=== PATIENT | male | born 1955 | race Hispanic/Latino ===

== ENCOUNTER 2019-11-02 11:14 | Observation (INO) | payer MEDICAID, OTHER ==
[~2019-11-02 11:14] MED LIST: Iopamidol-370 76% 500 ML 1 ML ONE
[2019-11-02] MEDS ORDERED: Aspirin Chewable 81 MG TAB ONE (11:42)
[2019-11-02] MEDS ORDERED: Nitroglycerin 2% Ointment 1 INCH/1 GM Packet ONE (11:42)
[2019-11-02 12:12] LABS: #Eosinphils 0.1 thou/uL (0.0-0.7); #Lymphocytes 1.1 thou/uL (1.20-3.40); #Monocytes 0.4 thou/uL (0.11-0.59); #Neutrophils 4.3 thou/uL (1.40-6.50); %Basophils 0.6 % (0.0-1.0); %Eosinophils 1.3 % (0.0-10.0); %Lymphocytes 18.5 % (21.0-51.0); %Monocytes 6.2 % (0.0-10.0); %Neutrophils 73.4 % (42.0-75.0); Hemoglobin 13.4 g/dL (14.0-18.0); Mean Corpuscular HGB CONC 31.6 g/dL (32.0-36.0); Mean Corpuscular Volume 82.2 fL (78.0-98.0); Mean Platelet Volume 7.1 fL (7.4-10.4); Platelet Count 366 thou/uL (130-400); Red Blood Cell (RBC) Count 5.17 mill/uL (4.70-6.10); White Blood Cell (WBC) Count 5.9 thou/uL (4.8-10.8)
[2019-11-02 12:46] LABS: ALT (SGPT) 22 U/L (8-55); AST (SGOT) 19 U/L (5-34); Albumin 4.3 g/dL (3.4-4.8); Alkaline Phosphatase 102 U/L (40-110); Anion Gap 12 mmol/L (10-20); BUN (Urea Nitrogen) 11 mg/dL (8.4-25.7); Bilirubin, Total 0.5 mg/dL (0.2-1.2); Calc. Creatinine Clearance 0 mL/min (70-130); Calcium 9.5 mg/dL (7.8-10.44); Carbon Dioxide 23 mmol/L (23-31); Chloride 104 mmol/L (98-107); Estimated GFR-MDRD 88; Globulin 3.2 g/dL (2.4-3.5); Glucose 143 mg/dL (80-115); Lipase 37 U/L (8-78); Potassium 3.9 mmol/L (3.5-5.1); Protein, Total 7.5 g/dL (5.8-8.1); Sodium 135 mmol/L (136-145)
[2019-11-02] MEDS ORDERED: Nitroglycerin 0.4 MG TAB 1 EACH ONE (13:23)
--- NOTE | 2019-11-02 13:54 | RAD ---
EXAM: CHEST ONE VIEW: 11/02/19 HISTORY: Vomiting, chills, fever, cough. COMPARISON: 06/02/13. FINDINGS: Postop midline sternotomy. Probable cardiac vascular stent. Old granulomatous disease. No confluent p neumonia, overt edema or pleural effusion. IMPRESSION: Postop midline sternotomy. No significant acute intrathoracic disease. No evidence for pneumonia. POS: [facility]
[2019-11-02] MEDS ORDERED: Ketorolac Tromethamine 30 MG/ML VIAL ONE (14:14)
--- NOTE | 2019-11-02 15:36 | CT ---
CT OF THE CHEST WITH IV CONTRAST AND 3D POSTPROCESSING: CT OF THE ABDOMEN WITH IV CONTRAST AND 3D POSTPROCESSIN11/02/19 HISTORY: 63-year-old male with chest pain. FINDINGS: There is good opacification of the thoracoabdominal aorta without intimal flap to suggest dissection. No aneurysmal dilatation is seen. 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 There is moderate stenosis at the origins of the reba al arteries bilaterally. There is good contrast opacification of the pulmonary artery vasculature without filling defects to s uggest pulmonary embolism. No pleural or pericardial effusions are seen. No pneumothoraces, focal are as of consolidation or lung masses/nodules are see. No free air, free fluid or lymphadenopathy is seen in the abdomen. No mediastinal, hilar or axillary mass or lymphadenopathy is identified. The patient is post cholecystectomy. The liver, spleen, pancreas, adrenal glands, are normal. There i s a small right inguinal cyst. A tiny nonobstructing left renal calculus is present. There are degenerative changes in the spine. IMPRESSION: 1. No CT evidence of aortic aneurysm/dissection or pulmonary embolism. 2. Nonobstructing tiny left renal calculus. POS: [facility]
[2019-11-02 15:50] LABS: Troponin I 0.015 ng/mL (< 0.028)
[2019-11-02] MEDS ORDERED: Ondansetron ODT 4 MG TAB SL PRN (16:50)
[2019-11-02] MEDS ORDERED: Acetaminophen 325 MG TAB PO PRN (16:50)
[2019-11-02] MEDS ORDERED: Ondansetron PF 4 MG/2 ML Vial IVP PRN (16:50)
--- NOTE | 2019-11-02 17:29 | PDOC.HHP ---
Hospitalist HPI - History of Present Illness chest pain History of Present Illness: This is a 63 year old male with past medical history of CAD s/p CABG, cardiac tamponade, who presented to the ER with chest pain. The patient says yesterday he felt like he had no energy and felt weak. This morning he woke up at 3 am with chest pain, 7/10 that started while he was sleeping. He states it was sharp , radiating to his left shoulder. HE states his pain is worst with any kind of movement. He denies pain while taking a deep breath. He reports shortness of breath and dry cough for the past few days. He also reports feeling hot. He does not have a fever that he knows of. He has headaches, nausea and vomiting, but no abdominal pain. The patient hasn't been drinking water for the past few days because he states "it doesn't taste the same, it tastes weird." He denies loss of smell. He denies sick contacts. He lives with his brother. He recently moved from [place] two months ago. The patient also reports intermittent ear pain for the past few months worst on the left. He states he has been using cutips to clean his ears frequently. He feels there is fluid coming out of his ear. ED Course: The patient presented to the ER with elevated systolic of 210. He was given aspirin 324, nitro, toradol. Chest X ray was normal. CTA showed no PE or no dissection. The patient reported mild improvement in pain with toradol. Per ER his pain improved some with nitroglycerin. EKG showed inverted T waves in lateral leads which are new. Hospitalist ROS - Review of Systems Constitutional: reports: chills Eyes: denies: vision change ENT: reports: ear pain (worst on the left) Respiratory: reports: cough, shortness of breath Cardiovascular: reports: chest pain. denies: palpitations, orthopnea Gastrointestinal: reports: nausea, vomiting. denies: abdominal pain, diarrhea Genitourinary: denies: dysuria, frequency Musculoskeletal: denies: neck pain, shoulder pain Hospitalist History - Past Medical History Other Medical History: CAd s/p CABG Hypertension Hyperlipidemia Peripheral neuropathy - Past Surgical History Other Surgical History: CAD s/p CABG Appendectomy Cholecystectomy Kidney stone removal Carotid stent - Family History Other Family History: parents have heart disease - Social History Smoking Status: Former smoker (Quit 12 years ago) Alcohol: reports: None Drugs: reports: none Living Situation: Other (lives with brother) - Exam General Appearance: NAD, awake alert Eye: PERRL, anicteric sclera ENT: normocephalic atraumatic, no oropharyngeal lesions ENT - other findings: left ear erythema with significant wax buildup. Neck: no JVD Heart: RRR, no murmur, no gallops, no rubs, diminshed peripheral pulses Respiratory: CTAB, no wheezes, no rales, no ronchi Gastrointestinal: soft, non-tender, non-distended, normal bowel sounds Extremities: no cyanosis, no clubbing, no edema Skin: normal turgor, no lesions, no rashes Neurological: cranial nerve grossly intact, normal sensation to touch, no focal deficits, no new deficit Hospitalist Results - Labs Result Diagrams: 11/02/19 11:40 11/02/19 11:40 Lab results: WBC 5.9 thou/uL (4.8-10.8) 11/02/19 11:40 Hgb 13.4 g/dL (14.0-18.0) L 11/02/19 11:40 Hct 42.5 % (42.0-52.0) 11/02/19 11:40 MCV 82.2 fL (78.0-98.0) 11/02/19 11:40 Plt Count 366 thou/uL (130-400) 11/02/19 11:40 Neutrophils % 73.4 % (42.0-75.0) 11/02/19 11:40 Sodium 135 mmol/L (136-145) L 11/02/19 11:40 Potassium 3.9 mmol/L (3.5-5.1) 11/02/19 11:40 Chloride 104 mmol/L (98-107) 11/02/19 11:40 Carbon Dioxide 23 mmol/L (23-31) 11/02/19 11:40 BUN 11 mg/dL (8.4-25.7) 11/02/19 11:40 Creatinine 0.87 mg/dL (0.7-1.3) 11/02/19 11:40 Glucose 143 mg/dL (80-115) H 11/02/19 11:40 Calcium 9.5 mg/dL (7.8-10.44) 11/02/19 11:40 Total Bilirubin 0.5 mg/dL (0.2-1.2) 11/02/19 11:40 AST 19 U/L (5-34) 11/02/19 11:40 ALT 22 U/L (8-55) 11/02/19 11:40 Alkaline Phosphatase 102 U/L (40-110) 11/02/19 11:40 Troponin I 0.015 ng/mL (< 0.028) 11/02/19 15:08 B-Natriuretic Peptide 12.7 pg/mL (0-100) 11/02/19 11:40 Serum Total Protein 7.5 g/dL (5.8-8.1) 11/02/19 11:40 Albumin 4.3 g/dL (3.4-4.8) 11/02/19 11:40 Lipase 37 U/L (8-78) 11/02/19 11:40 - EKG Interpretation EKG: T wave inversions in lateral lead Hospitalist H&P A/P - Plan Plan: CTA: no dissection or PE Chest X ray: no pneumonia This is a 63 year old male with past medical history of hypertension, CAD s/p CABG who presented to the ER with chest pain, chills, Chest pain - likely secondary to viral etiology - given concomitant weakness/nausea/vomiting, abnormalities in taste, SOB/cough , suspect infectious vs allergic cause - COVID testing performed. Will order respiratory viral panel. Consider starting dexamethasone if COVID + - EKG shows new T wave inversion, continue to trend troponins and monitor on telemetry - chest X ray normal. CTA shows no PE or dissection CAd s/p CABG - continue aspirin, coreg, lisinopril, brilinta Mild otitis externa left ear - will order cipro ear drops - debrox to dissolve wax GERD - continue protonix Hypertension - hold meds for now Code status:full code
[2019-11-02 17:38] VITALS: BMI 25.0
[2019-11-02] MEDS ORDERED: Zolpidem Tartrate 5 MG TAB PO PRN (17:42)
[2019-11-02] MEDS ORDERED: Ondansetron ODT 4 MG TAB PO PRN (17:42)
[2019-11-02] MEDS ORDERED: Methocarbamol 500 MG TAB PO PRN (17:42)
[2019-11-02] MEDS ORDERED: Loratadine 10 MG TAB PO SCH (17:45)
[2019-11-02] MEDS: HYDROcodone/Acetaminophen 5/325 mg Tablet PO PRN (18:18)
[2019-11-02 18:53] LABS: Troponin I Less than 0.010 ng/mL (< 0.028)
[2019-11-02] MEDS: Carbamide Peroxide 6.5% Otic Drops 15 ml Bottle L EAR SCH (21:55)
[2019-11-02] MEDS: Gabapentin 300 MG CAP PO SCH (21:57)
[2019-11-02] MEDS: TICAGRELOR 90 MG TABLET PO SCH (21:57)
[2019-11-02] MEDS: Ciprofloxacin 0.2% Otic 1 DROP CON EA EAR SCH (21:59)
[2019-11-03] MEDS: HYDROcodone/Acetaminophen 5/325 mg Tablet PO PRN ×3 (00:18→15:55)
[2019-11-03] MEDS: Carbamide Peroxide 6.5% Otic Drops 15 ml Bottle L EAR SCH ×2 (08:10→21:00)
[2019-11-03] MEDS: Aspirin 81 mg Enteric Coated Tablet PO SCH (08:11)
[2019-11-03] MEDS: Atorvastatin Calcium 40 MG TAB PO SCH (08:11)
[2019-11-03] MEDS: Loratadine 10 MG TAB PO SCH (08:11)
[2019-11-03] MEDS: Ciprofloxacin 0.2% Otic 1 DROP CON EA EAR SCH ×2 (08:11→21:46)
[2019-11-03] MEDS: Gabapentin 300 MG CAP PO SCH ×3 (08:11→21:00)
[2019-11-03] MEDS: Carvedilol 25 MG TAB PO SCH ×2 (08:12→17:25)
[2019-11-03] MEDS: TICAGRELOR 90 MG TABLET PO SCH ×2 (08:12→21:00)
[2019-11-03 09:04] LABS: #Basophils 0.1 thou/uL (0.0-0.2); #Eosinphils 0.1 thou/uL (0.0-0.7); #Lymphocytes 1.3 thou/uL (1.20-3.40); #Monocytes 0.5 thou/uL (0.11-0.59); #Neutrophils 4.9 thou/uL (1.40-6.50); %Basophils 0.8 % (0.0-1.0); %Eosinophils 1.7 % (0.0-10.0); %Lymphocytes 18.9 % (21.0-51.0); %Monocytes 6.8 % (0.0-10.0); %Neutrophils 71.8 % (42.0-75.0); Hemoglobin 12.4 g/dL (14.0-18.0); Mean Corpuscular HGB CONC 31.8 g/dL (32.0-36.0); Mean Corpuscular Hemoglobin 26.1 pg (27.0-31.0); Mean Platelet Volume 7.5 fL (7.4-10.4); Platelet Count 340 thou/uL (130-400); Red Blood Cell (RBC) Count 4.75 mill/uL (4.70-6.10); White Blood Cell (WBC) Count 6.8 thou/uL (4.8-10.8)
[2019-11-03 09:20] LABS: Anion Gap 12 mmol/L (10-20); BUN (Urea Nitrogen) 13 mg/dL (8.4-25.7); Calc. Creatinine Clearance 89 mL/min (70-130); Calcium 8.9 mg/dL (7.8-10.44); Carbon Dioxide 23 mmol/L (23-31); Chloride 103 mmol/L (98-107); Estimated GFR-MDRD Greater than 90; Glucose 92 mg/dL (80-115); Potassium 3.9 mmol/L (3.5-5.1); Sodium 134 mmol/L (136-145)
[2019-11-03] MEDS ORDERED: Ondansetron PF 4 MG/2 ML Vial IVP PRN (10:56)
[2019-11-03] MEDS ORDERED: Morphine 4 MG/ML VIAL SLOW IVP PRN (10:56)
--- NOTE | 2019-11-03 10:59 | PDOC.HOSPP ---
- Subjective Encounter Date: 11/03/19 (f/u chest pain) Encounter Time: 10:57 Subjective: Pt admitted yesterday for chest pain. {t with multiple episodes of vomiting today, c/o abdominal pain that radiates to his chest - same as yesterday. He denies any new symptoms today. - Objective Vital Signs & Weight: Vital Signs (12 hours) Temp Pulse Resp BP BP BP Pulse Ox 11/03/19 08:18 97.8 F 78 18 179/112 H 100 11/03/19 04:05 98.0 F 64 16 135/69 99 11/03/19 00:20 98.2 F 74 18 165/84 H 98 Weight Weight 145 lb 12.8 oz I&O: 11/02/19 11/03/19 11/04/19 06:59 06:59 06:59 Intake Total 490 Balance 490 Result Diagrams: 11/03/19 08:34 11/03/19 08:34 EKG Reviewed by me: Yes (tele - sinus 60-70's) Hospitalist ROS - Medication Medications: Active Medications Generic Name Dose Route Start Last Admin Trade Name Freq PRN Reason Stop Dose Admin Hydrocodone Bitart/Acetaminophen 1 tab 11/02/19 17:42 11/03/19 08:23 [place] 5/325 PO 1 tab Q6H PRN Administration Pain Aspirin 81 mg 11/03/19 09:00 11/03/19 08:11 Ecotrin PO 81 mg DAILY MELISSA Administration Atorvastatin Calcium 80 mg 11/03/19 09:00 11/03/19 08:11 Lipitor PO 80 mg DAILY MELISSA Administration Carbamide Perox/Anhydrous Glycerin 1 drop 11/02/19 21:00 11/03/19 08:10 Debrox 6.5% Otic L EAR 1 drop BID MELISSA Administration Carvedilol 25 mg 11/03/19 08:00 11/03/19 08:12 Coreg PO 25 mg BID-WM MELISSA Administration Ciprofloxacin 4 drop 11/02/19 21:00 11/03/19 08:11 Cipro 0.2% Otic EA EAR 4 drop BID MELISSA Administration Duloxetine HCl 20 mg 11/03/19 09:00 11/03/19 08:12 Cymbalta PO 20 mg DAILY MELISSA Administration Gabapentin 300 mg 11/02/19 21:00 11/03/19 08:11 Neurontin PO 300 mg TID MELISSA Administration Loratadine 10 mg 11/03/19 09:00 11/03/19 08:11 Claritin PO 10 mg DAILY MELISSA Administration Ondansetron HCl 4 mg 11/02/19 17:42 11/03/19 10:30 Zofran Odt PO 4 mg Q8H PRN Administration Nausea Pantoprazole Sodium 40 mg 11/03/19 09:00 11/03/19 08:12 Protonix PO 40 mg DAILY MELISSA Administration Ticagrelor 90 mg 11/02/19 21:00 11/03/19 08:12 Brilinta PO 90 mg BID MELISSA Administration - Exam General Appearance: NAD Heart: RRR, no murmur Respiratory: no wheezes, no rales, no ronchi Respiratory - other findings: decreased breath sounds at bases Gastrointestinal: soft, non-tender, non-distended, normal bowel sounds Extremities: no cyanosis, no clubbing, no edema Psychiatric: normal affect Hosp A/P (1) Abdominal pain Code(s): R10.9 - UNSPECIFIED ABDOMINAL PAIN Status: Acute Qualifiers: Abdominal location: generalized Qualified Code(s): R10.84 - Generalized abdominal pain (2) Chest pain Code(s): R07.9 - CHEST PAIN, UNSPECIFIED Status: Acute Qualifiers: Ischemic chest pain type: unspecified angina pectoris type (3) Coronary artery disease Code(s): I25.10 - ATHSCL HEART DISEASE OF [place] CORONARY ARTERY W/O ANG PCTRS Status: Chronic (4) Hypertension Code(s): I10 - ESSENTIAL (PRIMARY) HYPERTENSION Status: Chronic (5) Otitis externa Code(s): H60.90 - UNSPECIFIED OTITIS EXTERNA, UNSPECIFIED EAR Status: Acute Qualifiers: Laterality: left - Plan Pt with persistent abd pain/n/v and PO intolerant now - neg CT dissection protocol. - NPO - start IVF - manage nausea and pain - await COVID test result Chest pain - uncertain if abd pain is creating this or pt having anginal equivalent sx - echo - obtain COVID results - will order stress test if COVID negative and n/v are resolved - consider Cardiology consult HTN - not optimally control, resume home Imdur if able to take PO DVT prophy - scd's gi prophy - start IV protonix code status full reviewed plan of care with patient, no questions or further needs at end of eval. Addendum - COVID test negative. Per the nurse, no further need for anti- emetic. Will continue IVF, NPO after midnight, and order stress test tomorrow. Echo ordered earlier today.
[2019-11-03] MEDS ORDERED: Sodium Chloride 0.9% (PF) 10 ML VIAL FS PRN (11:11)
[2019-11-03] MEDS: NS 0.9% w/ 20 MEQ KCL 1,000 ML/1,000 ML BAG IV SCH ×2 (11:24→21:00)
[2019-11-03 13:18] LABS: SARS-CoV-2 MS2 Positive; SARS-CoV-2 N Gene Negative; SARS-CoV-2 S Gene Negative; SARS-CoV-2 orf1ab Negative
[2019-11-04] MEDS: HYDROcodone/Acetaminophen 5/325 mg Tablet PO PRN ×2 (01:18→08:46)
[2019-11-04 04:10] LABS: #Eosinphils 0.1 thou/uL (0.0-0.7); #Lymphocytes 0.9 thou/uL (1.20-3.40); #Monocytes 0.5 thou/uL (0.11-0.59); #Neutrophils 4.3 thou/uL (1.40-6.50); %Basophils 0.8 % (0.0-1.0); %Eosinophils 1.2 % (0.0-10.0); %Lymphocytes 15.2 % (21.0-51.0); %Monocytes 7.8 % (0.0-10.0); %Neutrophils 75.1 % (42.0-75.0); Hemoglobin 10.1 g/dL (14.0-18.0); Mean Corpuscular HGB CONC 32.6 g/dL (32.0-36.0); Mean Corpuscular Hemoglobin 27.2 pg (27.0-31.0); Mean Corpuscular Volume 83.5 fL (78.0-98.0); Mean Platelet Volume 7.3 fL (7.4-10.4); Platelet Count 259 thou/uL (130-400); RBC Distribution Width 15.7 % (11.5-14.5); White Blood Cell (WBC) Count 5.7 thou/uL (4.8-10.8)
[2019-11-04 04:30] LABS: Anion Gap 9 mmol/L (10-20); BUN (Urea Nitrogen) 12 mg/dL (8.4-25.7); Calc. Creatinine Clearance 89 mL/min (70-130); Calcium 7.8 mg/dL (7.8-10.44); Carbon Dioxide 23 mmol/L (23-31); Chloride 108 mmol/L (98-107); Estimated GFR-MDRD Greater than 90; Glucose 134 mg/dL (80-115); Potassium 4.2 mmol/L (3.5-5.1); Sodium 136 mmol/L (136-145)
[2019-11-04] MEDS: NS 0.9% w/ 20 MEQ KCL 1,000 ML/1,000 ML BAG IV SCH (08:46)
[2019-11-04] MEDS: Gabapentin 300 MG CAP PO SCH ×2 (08:48→15:26)
[2019-11-04] MEDS: Carbamide Peroxide 6.5% Otic Drops 15 ml Bottle L EAR SCH (08:58)
[2019-11-04] MEDS ORDERED: Pantoprazole 40 MG VIAL IVP SCH (09:00)
--- NOTE | 2019-11-04 09:14 | PDOC.HOSPP ---
- Subjective Encounter Date: 11/04/19 (f/u chest pain) Encounter Time: 09:10 Subjective: Pt reports chest pain this morning - left side, intermittent, sharp, lasts minutes and resolves. No ppt or relieving factors. Same pain as he presented with. He denies any further abd pain/n/v. He also denies any concerns. He received norco for the pain. - Objective Vital Signs & Weight: Vital Signs (12 hours) Temp Pulse Resp BP BP Pulse Ox 11/04/19 07:35 97.6 F 84 12 156/84 H 97 11/04/19 03:03 98.2 F 76 18 139/69 97 Weight Admit Weight 145 lb 12.8 oz Weight 145 lb 12.8 oz I&O: 11/03/19 11/04/19 11/05/19 06:59 06:59 06:59 Intake Total 490 2956 Balance 490 2956 Result Diagrams: 11/04/19 14:13 11/04/19 03:32 EKG Reviewed by me: Yes (tele - sinus 80's) Hospitalist ROS - Medication Medications: Active Medications Generic Name Dose Route Start Last Admin Trade Name Freq PRN Reason Stop Dose Admin Hydrocodone Bitart/Acetaminophen 1 tab 11/02/19 17:42 11/04/19 08:46 [place] 5/325 PO 1 tab Q6H PRN Administration Mild-Moderate Pain (1-5) Aspirin 81 mg 11/03/19 09:00 11/03/19 08:11 Ecotrin PO 81 mg DAILY MELISSA Administration Atorvastatin Calcium 80 mg 11/03/19 09:00 11/03/19 08:11 Lipitor PO 80 mg DAILY MELISSA Administration Carbamide Perox/Anhydrous Glycerin 1 drop 11/02/19 21:00 11/04/19 08:58 Debrox 6.5% Otic L EAR 1 drop BID MELISSA Administration Carvedilol 25 mg 11/03/19 08:00 11/03/19 17:25 Coreg PO 25 mg BID-WM MELISSA Administration Ciprofloxacin 4 drop 11/02/19 21:00 11/03/19 21:46 Cipro 0.2% Otic EA EAR 4 drop BID MELISSA Administration Duloxetine HCl 20 mg 11/03/19 09:00 11/03/19 08:12 Cymbalta PO 20 mg DAILY MELISSA Administration Gabapentin 300 mg 11/02/19 21:00 11/04/19 08:48 Neurontin PO 300 mg TID MELISSA Administration Potassium Chloride/Sodium Chloride 1,000 ml in 1,000 mls @ 100 mls/hr 11:00 11/04/19 08:46 Ns 0.9% W/ 20 Meq Kcl IV 1,000 mls .Q10H MELISSA Administration Loratadine 10 mg 11/03/19 09:00 11/03/19 08:11 Claritin PO 10 mg DAILY MELISSA Administration Ondansetron HCl 4 mg 11/02/19 17:42 11/03/19 10:30 Zofran Odt PO 4 mg Q8H PRN Administration Nausea Ondansetron HCl 4 mg 11/03/19 10:56 11/03/19 11:24 Zofran IVP 4 mg Q6H PRN Administration Nausea/Vomiting Pantoprazole Sodium 40 mg 11/04/19 09:00 11/04/19 08:59 Protonix IVP 40 mg DAILY MELISSA Administration Ticagrelor 90 mg 11/02/19 21:00 11/03/19 21:00 Brilinta PO 90 mg BID MELISSA Administration - Exam General Appearance: NAD Heart: RRR, no murmur Respiratory: CTAB, no wheezes, no rales, no ronchi Gastrointestinal: soft, non-tender, non-distended, normal bowel sounds Extremities: no cyanosis, no clubbing, no edema Psychiatric: normal affect Hosp A/P (1) Abdominal pain Code(s): R10.9 - UNSPECIFIED ABDOMINAL PAIN Status: Resolved Qualifiers: Abdominal location: generalized Qualified Code(s): R10.84 - Generalized abdominal pain (2) Chest pain Code(s): R07.9 - CHEST PAIN, UNSPECIFIED Status: Acute Qualifiers: Ischemic chest pain type: unspecified angina pectoris type (3) Coronary artery disease Code(s): I25.10 - ATHSCL HEART DISEASE OF [place] CORONARY ARTERY W/O ANG PCTRS Status: Chronic Qualifiers: Coronary Disease-Associated Artery/Lesion type: bypass graft (4) Hypertension Code(s): I10 - ESSENTIAL (PRIMARY) HYPERTENSION Status: Chronic (5) Otitis externa Code(s): H60.90 - UNSPECIFIED OTITIS EXTERNA, UNSPECIFIED EAR Status: Acute Qualifiers: Laterality: left - Plan Overall improved with resolution of abd sx/n/v. - negative COVID test - decline in hemoglobin today - may be dilutional as he is on IVF. Pt denies any blood or change in stool and reports colonoscopy 5 years ago. Will check FOBT. - change to PO protonix Atypical chest pain with extensive cardiac history - Echo and pharm stress test today - continue current meds - if both tests are normal, anticipate pt can be discharged to home. If abnormal, consult to Cardiology for evaluation Other - pt requests refills of gabapentin and robaxin when discharged. DVT prophy - scd's gi prophy - protonix code status full reviewed plan of care with patient, no questions or further needs at end of eval.
[2019-11-04] MEDS ORDERED: ADENOSINE 60 MG/20 ML VIAL ONE (09:57)
[2019-11-04] MEDS: Atorvastatin Calcium 40 MG TAB PO SCH (13:08)
[2019-11-04] MEDS: Aspirin 81 mg Enteric Coated Tablet PO SCH (13:10)
[2019-11-04] MEDS: Ciprofloxacin 0.2% Otic 1 DROP CON EA EAR SCH (13:11)
[2019-11-04] MEDS: Carvedilol 25 MG TAB PO SCH ×2 (13:11→16:40)
[2019-11-04] MEDS: TICAGRELOR 90 MG TABLET PO SCH (13:11)
[2019-11-04] MEDS: Loratadine 10 MG TAB PO SCH (13:32)
[2019-11-04 15:00] LABS: Hemoglobin 11.5 g/dL (14.0-18.0)
[2019-11-04 15:30] VITALS: BP 161/77; TEMP 98
--- NOTE | 2019-11-04 15:48 | NM ---
MYOCARDIAL PERFUSION SCAN: Technique: Patient was given 9.5 mCi Technetium 99M Sestamibi for rest imaging and 28.9 mCi Technetiu m 99M Sestamibi for stress imaging. Patient was stressed according to Adenosine protocol. Indications: Chest pain FINDINGS: Left ventricle was imaged with SPECT imaging and attenuation correction images were obtained. The left ventricle shows normal activity on stress and rest imaging. There is no evidence of reversib le ischemia. There is normal wall motion and ejection fracture. IMPRESSION: Negative Sestamibi stress test. POS: [facility]
--- NOTE | 2019-11-04 19:27 | DIS ---
DATE OF ADMISSION: 11/02/2019 DATE OF DISCHARGE: 11/04/2019 PROCEDURES PERFORMED: Pharmacologic stress test and echocardiogram. DISCHARGE MEDICATIONS: Medications are reconciled at discharge. New medication: 1. Pantoprazole 40 mg p.o. daily. 2. Ciprofloxacin 0.2% otic 4 drops in left ear twice a day for 4 more days. Medications to continue: Note, on the patient's medication list, it will show up as some new medications, however, these are medications to continue; 1. Aspirin 81 mg daily. 2. Lipitor 40 mg at bedtime. 3. Carvedilol 25 mg b.i.d. 4. Cymbalta 20 mg daily. 5. Gabapentin 300 mg t.i.d. 6. [place] 5/325 every 6 hours one tablet every 6 hours as needed. 7. Isosorbide mononitrate extended release 30 mg daily. 8. Lisinopril 20 mg daily. 9. Robaxin 500 mg t.i.d. 10. Brilinta 90 mg b.i.d. 11. Ambien 10 mg at bedtime as needed. Gabapentin and Robaxin refilled per the patient's request for 30 days. Further refills from the primary care provider. Medications discontinued are none. Medications changed are none. FINAL DIAGNOSES: 1. Abdominal pain and chest pain with negative cardiac evaluation here. 2. Left otitis externa, needs followup in the outpatient setting. 3. Nonobstructive tiny left renal calculus identified on CT, incidental finding. 4. Anemia - unknown chronicity and etiology - needs outpatient follow up. SECONDARY DIAGNOSES: 1. Coronary artery disease with history of stent and coronary artery bypass grafting. 2. Hypertension. 3. Dyslipidemia. 4. Peripheral neuropathy. 5. Chronic pain. 6. Gastroesophageal reflux disease. HISTORY OF PRESENT ILLNESS: Mr. Ramirez is a 63-year-old male, who presented to the emergency room with a complaint of feeling weak, and waking up with chest pain as well as headache, nausea, and vomiting. He was also complaining of intermittent ear pain on the left side. In the emergency room, the patient had a systolic blood pressure of 210, he was treated with aspirin, nitroglycerin paste, Toradol, and hospitalist called for admission. HOSPITAL COURSE: The patient was monitored on telemetry and maintained a sinus rhythm. He was ruled out for COVID, and the nausea, vomiting, abdominal pain, and chest pain were treated. Overnight into today, he did have an episode of chest pain that is atypical, left-sided, sharp and intermittent. With his cardiac history , he underwent nuclear stress test and echocardiogram, both of which are unremarkable. The patient is overall feeling well, abdominal symptoms are resolved, and he does meet criteria for discharge to home. For his left ear, he was started on ciprofloxacin drop, which will be continued in the outpatient setting. 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 of note, the patient did have a hemoglobin today of 10.1, on arrival to the emergency room was 13.4. This was repeated this afternoon and 11.5. He has not demonstrated any evidence of bleeding, and does report a colonoscopy in approximately 5 years ago that was normal. He will need followup with his PCP. PHYSICAL EXAMINATION: VITAL SIGNS: On day of discharge, please see the note on the chart for today. KHAN FINDINGS AND TEST RESULTS: Hemoglobin today 11.5, hematocrit 36. CBC early this morning 5.7, 10.1, 30.9, 259. Renal panel; 136, 4.2, 108, 23, 12, 0.78, 134. Troponin x3 negative. BNP was 12. T-bilirubin 0.5, AST 19, ALT 22, alkaline phosphatase 102, total protein 7.5, albumin 4.3. COVID testing was not detected. Nuclear stress test negative. Echocardiogram showed an ejection fraction of 60% to 65%, grade 1/3 diastolic dysfunction, mild TR, MR, and aortic valve sclerosis. CT dissection protocol was negative for no evidence of aortic aneurysm or dissection and negative for PE, nonobstructing tiny left renal calculus. Chest x-ray, postop midline sternotomy, no acute intrathoracic disease and no evidence of pneumonia. DIET: Heart healthy. ACTIVITY: As tolerated. FOLLOWUP: 1. With the primary care provider for re-evaluation of the left ear within the next few days, evaluating the anemia further, and addressing any other health issues. 2. Follow up with [facility], Dr. Worthy, for ongoing cardiac evaluation and care. Reviewed with the patient this hospitalization, the importance of followup, the seek care precautions. He demonstrates understanding and agrees. TIME SPENT: Total time in coordinating discharge is 35 minutes. Job ID: [id number] [facility]
== END 2019-11-04 18:44 | disposition home or self-care (01) ==
LOC: ERS 11:14 → 2SW 14:55 → 2NO 11-03 19:21
PROVIDERS: ADMIT Internal Medicine; ATTEND Internal Medicine
DX: R07.89 Other chest pain (principal); I10 Essential (primary) hypertension; E78.5 Hyperlipidemia, unspecified; H60.92 Unspecified otitis externa, left ear; G62.9 Polyneuropathy, unspecified; K21.9 Gastro-esophageal reflux disease without esophagitis; Z87.891 Personal history of nicotine dependence; Z79.82 Long term (current) use of aspirin; Z79.899 Other long term (current) drug therapy; Z95.1 Presence of aortocoronary bypass graft
CPT/HCPCS: 36415; 71045; 71275; 72191; 74175; 78452; 80048; 80053; 82274; 83690; 83880; 84484; 85025; 87633; 87635; 87798; 93005; 93017; 93306; 96361; 96374; 96375; 96376; A9500; C9113; G0378; J0153; J1885; J2405; J3480; Q0162; Q9967; U0003

== ENCOUNTER 2020-08-04 19:42 | Emergency (ER) | payer MEDICARE, OTHER ==
[2020-08-04] MEDS ORDERED: Famotidine/PF 20 mg/2ml Vial ONE (20:22)
[2020-08-04 20:38] LABS: #Basophils 0.1 thou/uL (0.0-0.2); #Eosinphils 0.2 thou/uL (0.0-0.7); #Lymphocytes 2.4 thou/uL (1.20-3.40); #Monocytes 0.6 thou/uL (0.11-0.59); #Neutrophils 3.5 thou/uL (1.40-6.50); %Basophils 0.7 % (0.0-1.0); %Eosinophils 2.5 % (0.0-10.0); %Lymphocytes 35.5 % (21.0-51.0); %Monocytes 9.1 % (0.0-10.0); %Neutrophils 52.1 % (42.0-75.0); Hemoglobin 12.1 g/dL (14.0-18.0); Mean Corpuscular HGB CONC 31.6 g/dL (32.0-36.0); Mean Corpuscular Hemoglobin 24.5 pg (27.0-31.0); Mean Corpuscular Volume 77.7 fL (78.0-98.0); Mean Platelet Volume 7.3 fL (7.4-10.4); Platelet Count 382 thou/uL (130-400); RBC Distribution Width 16.9 % (11.5-14.5); Red Blood Cell (RBC) Count 4.93 mill/uL (4.70-6.10); White Blood Cell (WBC) Count 6.8 thou/uL (4.8-10.8)
[2020-08-04 21:02] LABS: ALT (SGPT) 19 U/L (8-55); AST (SGOT) 20 U/L (5-34); Acetaminophen Less than 6.0 mcg/mL (10.0-30.0); Albumin 4.6 g/dL (3.4-4.8); Alcohol 316 mg/dL (Less than 10); Alkaline Phosphatase 82 U/L (40-110); Anion Gap 11 mmol/L (10-20); BUN (Urea Nitrogen) 8 mg/dL (8.4-25.7); Bilirubin, Total 0.2 mg/dL (0.2-1.2); Calc. Creatinine Clearance 0 mL/min (70-130); Calcium 9.2 mg/dL (7.8-10.44); Carbon Dioxide 29 mmol/L (23-31); Chloride 99 mmol/L (98-107); Globulin 3.1 g/dL (2.4-3.5); Glucose 107 mg/dL (80-115); Lipase 22 U/L (8-78); Potassium 4.3 mmol/L (3.5-5.1); Protein, Total 7.7 g/dL (5.8-8.1); Salicylate Less than 8.0 mg/dL (15.0-30.0); Sodium 135 mmol/L (136-145)
== END 2020-08-04 22:21 | disposition home or self-care (01) ==
LOC: ERS 19:42
DX: F10.129 Alcohol abuse with intoxication, unspecified (principal); R10.13 Epigastric pain; E78.5 Hyperlipidemia, unspecified; E78.00 Pure hypercholesterolemia, unspecified; I10 Essential (primary) hypertension
CPT/HCPCS: 36415; 80053; 80307; 83690; 84484; 85025; 93005; 96374; S0028

== ENCOUNTER 2020-10-25 15:36 | Emergency (ER) | payer MEDICARE, OTHER ==
[2020-10-25] MEDS ORDERED: Ondansetron PF 4 MG/2 ML Vial ONE ×2 (17:19→19:38)
[2020-10-25] MEDS ORDERED: Morphine 4 MG/ML VIAL ONE (17:19)
[2020-10-25] MEDS ORDERED: Labetalol HCl 100 MG/20 ML VIAL ONE (17:19)
[2020-10-25 17:24] LABS: #Basophils 0.1 thou/uL (0.0-0.2); #Eosinphils 0.1 thou/uL (0.0-0.7); #Lymphocytes 1.5 thou/uL (1.20-3.40); #Monocytes 0.5 thou/uL (0.11-0.59); #Neutrophils 7.5 thou/uL (1.40-6.50); %Basophils 0.8 % (0.0-1.0); %Eosinophils 0.5 % (0.0-10.0); %Lymphocytes 15.3 % (21.0-51.0); %Monocytes 4.9 % (0.0-10.0); %Neutrophils 78.5 % (42.0-75.0); Hemoglobin 11.4 g/dL (14.0-18.0); Mean Corpuscular HGB CONC 30.3 g/dL (32.0-36.0); Mean Corpuscular Hemoglobin 24.1 pg (27.0-31.0); Mean Corpuscular Volume 79.5 fL (78.0-98.0); Mean Platelet Volume 6.5 fL (7.4-10.4); Platelet Count 477 thou/uL (130-400); RBC Distribution Width 17.5 % (11.5-14.5); Red Blood Cell (RBC) Count 4.72 mill/uL (4.70-6.10); White Blood Cell (WBC) Count 9.6 thou/uL (4.8-10.8)
[2020-10-25 17:46] LABS: ALT (SGPT) 21 U/L (8-55); AST (SGOT) 22 U/L (5-34); Albumin 4.2 g/dL (3.4-4.8); Alkaline Phosphatase 67 U/L (40-110); Anion Gap 15 mmol/L (10-20); BUN (Urea Nitrogen) 7 mg/dL (8.4-25.7); Bilirubin, Total Less than 0.2 mg/dL (0.2-1.2); Calc. Creatinine Clearance 0 mL/min (70-130); Carbon Dioxide 25 mmol/L (23-31); Chloride 104 mmol/L (98-107); Globulin 2.9 g/dL (2.4-3.5); Glucose 115 mg/dL (80-115); Lipase 21 U/L (8-78); Potassium 3.2 mmol/L (3.5-5.1); Protein, Total 7.1 g/dL (5.8-8.1); Sodium 141 mmol/L (136-145)
[2020-10-25] MEDS ORDERED: Potassium Chloride 20 MEQ TAB ONE (19:01)
[2020-10-25] MEDS ORDERED: Lidocaine Viscous Sol 2% 15 ml UD Cup ONE (19:35)
[2020-10-25] MEDS ORDERED: Mag-Al 1200 mg/1200 mg/30 ML UDCUP ONE (19:35)
[2020-10-25 19:36] LABS: Bilirubin Negative (Negative); Blood, Urine Negative (Negative); Clarity Clear (Clear); Glucose, Urine (Dipstick) Normal (Negative); Ketone, Urine Negative (Negative); Leukocyte Negative Leu/uL (Negative); Nitrite Negative (Negative); Protein, Urine (Dipstick) 10 mg/dL (Neg-Trace); Specific Gravity, Urine 1.018 (1.002-1.036); Urobilinogen Normal mg/dL (Less than 2); pH, Urine 6.5 (5.0-9.0)
[2020-10-25] MEDS ORDERED: Pantoprazole 40 MG VIAL ONE (19:38)
== END 2020-10-25 20:00 | disposition home or self-care (01) ==
LOC: ERS 15:36
DX: K29.70 Gastritis, unspecified, without bleeding (principal); I10 Essential (primary) hypertension; E78.00 Pure hypercholesterolemia, unspecified; E78.5 Hyperlipidemia, unspecified; Z79.899 Other long term (current) drug therapy
CPT/HCPCS: 71275; 74174; 80053; 81003; 83690; 85025; 93005; 93010; 96374; 96375; 96376; C9113; J2270; J2405; Q9967

== ENCOUNTER 2021-10-30 20:28 | Inpatient (IN) | payer OTHER ==
[2021-10-30] MEDS ORDERED: Nitroglycerin 2% Ointment 1 INCH/1 GM Packet ONE (21:06)
[2021-10-30] MEDS ORDERED: Acetaminophen 500 MG TAB ONE (21:06)
[2021-10-30] MEDS ORDERED: Morphine 2 MG/ML VIAL ONE (21:06)
[2021-10-30 21:35] LABS: #Lymphocytes 0.6 thou/uL (1.20-3.40); #Monocytes 0.7 thou/uL (0.11-0.59); #Neutrophils 3.9 thou/uL (1.40-6.50); %Eosinophils 0.3 % (0.0-10.0); %Lymphocytes 11.1 % (21.0-51.0); %Monocytes 14.1 % (0.0-10.0); %Neutrophils 74.6 % (42.0-75.0); Hemoglobin 10.7 g/dL (14.0-18.0); Mean Corpuscular HGB CONC 30.2 g/dL (32.0-36.0); Mean Corpuscular Hemoglobin 23.2 pg (27.0-31.0); Mean Platelet Volume 8.8 fL (7.4-10.4); Platelet Count 276 thou/uL (130-400); RBC Distribution Width 16.4 % (11.5-14.5); Red Blood Cell (RBC) Count 4.62 mill/uL (4.70-6.10); White Blood Cell (WBC) Count 5.2 thou/uL (4.8-10.8)
[2021-10-30 21:57] LABS: ALT (SGPT) 11 U/L (8-55); AST (SGOT) 16 U/L (5-34); Albumin 3.9 g/dL (3.4-4.8); Alkaline Phosphatase 73 U/L (40-110); Anion Gap 14 mmol/L (10-20); BUN (Urea Nitrogen) 11 mg/dL (8.4-25.7); Bilirubin, Total 0.2 mg/dL (0.2-1.2); Calc. Creatinine Clearance 0 mL/min (70-130); Calcium 8.4 mg/dL (7.8-10.44); Carbon Dioxide 23 mmol/L (23-31); Chloride 102 mmol/L (98-107); Globulin 3.1 g/dL (2.4-3.5); Glucose 97 mg/dL (80-115); Potassium 4.1 mmol/L (3.5-5.1); Sodium 135 mmol/L (136-145)
[2021-10-30 23:54] LABS: SARS-CoV-2 NAA Rapid Test DETECTED (NotDetected)
[2021-10-31] MEDS ORDERED: Ketorolac Tromethamine 30 MG/ML VIAL ONE (00:21)
[2021-10-31] MEDS ORDERED: Bisacodyl 5 MG TAB PO PRN (01:05)
[2021-10-31] MEDS ORDERED: Zolpidem Tartrate 5 MG TAB PO PRN ×2 (01:05→01:48)
[2021-10-31] MEDS ORDERED: Aspirin 325 MG TAB PO SCH (01:30)
[2021-10-31] MEDS: Methocarbamol 500 MG TAB PO PRN (02:32)
[2021-10-31 05:40] LABS: Band 12 % (5-11); Hemoglobin 9.8 g/dL (14.0-18.0); Hypochromia SLIGHT = 6-15 cells (100X) (0-5/hpf); Lymphocytes 18 % (21-51); MDiff Complete? YES; Mean Corpuscular HGB CONC 30.6 g/dL (32.0-36.0); Mean Corpuscular Hemoglobin 23.5 pg (27.0-31.0); Mean Corpuscular Volume 76.9 fL (78.0-98.0); Mean Platelet Volume 9.1 fL (7.4-10.4); Neutrophil 70 % (42-75); Platelet Count 235 thou/uL (130-400); Platelet Morphology Comment Appears Adequate; RBC Distribution Width 16.5 % (11.5-14.5); Red Blood Cell (RBC) Count 4.15 mill/uL (4.70-6.10); White Blood Cell (WBC) Count 5.1 thou/uL (4.8-10.8)
[2021-10-31 05:44] LABS: ALT (SGPT) 12 U/L (8-55); AST (SGOT) 18 U/L (5-34); Albumin 3.3 g/dL (3.4-4.8); Alkaline Phosphatase 63 U/L (40-110); Anion Gap 12 mmol/L (10-20); BUN (Urea Nitrogen) 14 mg/dL (8.4-25.7); Bilirubin, Total 0.2 mg/dL (0.2-1.2); Calc. Creatinine Clearance 72 mL/min (70-130); Calcium 8.1 mg/dL (7.8-10.44); Carbon Dioxide 23 mmol/L (23-31); Cardiac Risk 4.6 (Less than 4.5); Chloride 102 mmol/L (98-107); Cholesterol 147 mg/dl (< 200 Desired); Globulin 2.7 g/dL (2.4-3.5); Glucose 93 mg/dL (80-115); HDL Cholesterol 32 mg/dL (>60 Neg Risk); LDL Cholesterol, Calculated 81 mg/dL; Potassium 3.9 mmol/L (3.5-5.1); Sodium 133 mmol/L (136-145); Triglycerides 172 mg/dL (Less than 150)
[2021-10-31] MEDS: Acetaminophen 325 MG TAB PO PRN (07:16)
[2021-10-31] MEDS: TICAGRELOR 90 MG TABLET PO SCH ×2 (08:23→20:17)
[2021-10-31] MEDS: Gabapentin 300 MG CAP PO SCH ×3 (08:23→20:16)
[2021-10-31] MEDS: Famotidine 20 MG TAB PO SCH ×2 (08:23→20:17)
[2021-10-31] MEDS: Carvedilol 25 MG TAB PO SCH ×2 (08:23→16:10)
[2021-10-31] MEDS: Aspirin 81 mg Enteric Coated Tablet PO SCH (08:23)
[2021-10-31] MEDS: Guaifenesin DM 100-10/5 ML UDCUP PO PRN (08:24)
[2021-10-31] MEDS: Enoxaparin Sodium 40 MG/0.4 ML SYRINGE SC SCH (08:24)
[2021-10-31 08:28] LABS: Troponin I 0.014 ng/mL (< 0.028)
[2021-10-31] MEDS ORDERED: Lisinopril 20 MG TAB PO SCH (09:00)
[2021-10-31] MEDS: Ondansetron PF 4 MG/2 ML Vial IVP PRN ×2 (10:00→20:18)
[2021-10-31] MEDS: HYDROcodone/Acetaminophen 7.5/325 mg Tablet PO PRN ×2 (12:09→16:15)
[2021-10-31] MEDS: Nitroglycerin 0.4 MG TAB (25 Tab Bottle) SL PRN (12:45)
[2021-10-31] MEDS: Prochlorperazine Edisylate 10 MG in Sodium Chloride 0.9% 50 ML IVPB PRN (16:10)
[2021-10-31] MEDS: Atorvastatin Calcium 40 MG TAB PO SCH (20:17)
[2021-11-01 01:03] LABS: Troponin I 0.016 ng/mL (< 0.028)
[2021-11-01] MEDS: Acetaminophen 325 MG TAB PO PRN (05:20)
[2021-11-01] MEDS: Guaifenesin DM 100-10/5 ML UDCUP PO PRN ×2 (05:21→21:04)
[2021-11-01 08:34] LABS: Troponin I 0.014 ng/mL (< 0.028)
[2021-11-01] MEDS: Lisinopril 20 MG TAB PO SCH (09:17)
[2021-11-01] MEDS: TICAGRELOR 90 MG TABLET PO SCH ×2 (09:17→20:47)
[2021-11-01] MEDS: Carvedilol 25 MG TAB PO SCH ×2 (09:17→17:10)
[2021-11-01] MEDS: Aspirin 81 mg Enteric Coated Tablet PO SCH (09:17)
[2021-11-01] MEDS: Famotidine 20 MG TAB PO SCH ×2 (09:18→20:48)
[2021-11-01] MEDS: Enoxaparin Sodium 40 MG/0.4 ML SYRINGE SC SCH (09:18)
[2021-11-01] MEDS: Gabapentin 300 MG CAP PO SCH ×3 (09:18→20:46)
[2021-11-01] MEDS: Atorvastatin Calcium 40 MG TAB PO SCH (20:48)
[2021-11-01] MEDS: HYDROcodone/Acetaminophen 7.5/325 mg Tablet PO PRN (21:03)
[2021-11-02] MEDS: HYDROcodone/Acetaminophen 7.5/325 mg Tablet PO PRN ×4 (01:58→20:08)
[2021-11-02] MEDS: Guaifenesin DM 100-10/5 ML UDCUP PO PRN ×3 (01:58→20:06)
[2021-11-02] MEDS: TICAGRELOR 90 MG TABLET PO SCH ×2 (07:55→20:10)
[2021-11-02] MEDS: Carvedilol 25 MG TAB PO SCH ×2 (07:56→17:05)
[2021-11-02] MEDS: Aspirin 81 mg Enteric Coated Tablet PO SCH (07:56)
[2021-11-02] MEDS: Famotidine 20 MG TAB PO SCH ×2 (07:57→20:08)
[2021-11-02] MEDS: Lisinopril 20 MG TAB PO SCH (07:57)
[2021-11-02] MEDS: Gabapentin 300 MG CAP PO SCH ×3 (07:57→20:10)
[2021-11-02] MEDS: Enoxaparin Sodium 40 MG/0.4 ML SYRINGE SC SCH (07:58)
[2021-11-02] MEDS: Ondansetron PF 4 MG/2 ML Vial IVP PRN ×2 (11:42→17:06)
[2021-11-02] MEDS: Atorvastatin Calcium 40 MG TAB PO SCH (20:10)
[2021-11-03] MEDS: Methocarbamol 500 MG TAB PO PRN (00:02)
[2021-11-03] MEDS: Guaifenesin DM 100-10/5 ML UDCUP PO PRN ×3 (00:02→21:55)
[2021-11-03] MEDS: HYDROcodone/Acetaminophen 7.5/325 mg Tablet PO PRN ×5 (00:03→21:53)
[2021-11-03] MEDS: Ondansetron PF 4 MG/2 ML Vial IVP PRN (07:54)
[2021-11-03] MEDS: TICAGRELOR 90 MG TABLET PO SCH ×2 (10:24→21:51)
[2021-11-03] MEDS: Gabapentin 300 MG CAP PO SCH ×3 (10:26→21:51)
[2021-11-03] MEDS: Lisinopril 20 MG TAB PO SCH (10:26)
[2021-11-03] MEDS: Famotidine 20 MG TAB PO SCH ×2 (10:26→21:51)
[2021-11-03] MEDS: Carvedilol 25 MG TAB PO SCH ×2 (10:26→16:52)
[2021-11-03] MEDS: Aspirin 81 mg Enteric Coated Tablet PO SCH (10:26)
[2021-11-03] MEDS: Enoxaparin Sodium 40 MG/0.4 ML SYRINGE SC SCH (10:27)
[2021-11-03] MEDS: Scopolamine 1.5 mg/72 hour Patch TD SCH (10:28)
[2021-11-03] MEDS: Atorvastatin Calcium 40 MG TAB PO SCH (21:51)
[2021-11-04] MEDS: Guaifenesin DM 100-10/5 ML UDCUP PO PRN (06:03)
[2021-11-04] MEDS: HYDROcodone/Acetaminophen 7.5/325 mg Tablet PO PRN (06:03)
[2021-11-04] MEDS: Aspirin 81 mg Enteric Coated Tablet PO SCH (09:58)
[2021-11-04] MEDS: TICAGRELOR 90 MG TABLET PO SCH ×2 (10:00→22:04)
[2021-11-04] MEDS: Lisinopril 20 MG TAB PO SCH (10:00)
[2021-11-04] MEDS: Carvedilol 25 MG TAB PO SCH ×2 (10:01→16:22)
[2021-11-04] MEDS: Famotidine 20 MG TAB PO SCH ×2 (10:01→22:03)
[2021-11-04] MEDS: Enoxaparin Sodium 40 MG/0.4 ML SYRINGE SC SCH (10:02)
[2021-11-04] MEDS: Gabapentin 300 MG CAP PO SCH ×3 (10:02→22:03)
[2021-11-04 13:58] VITALS: BMI 26.5
[2021-11-04] MEDS: Ondansetron PF 4 MG/2 ML Vial IVP PRN (14:54)
[2021-11-04] MEDS: Atorvastatin Calcium 40 MG TAB PO SCH (22:03)
[2021-11-05] MEDS ORDERED: hydrALAZINE 20 MG/ML VIAL SLOW IVP PRN (08:55)
[2021-11-05] MEDS ORDERED: hydrALAZINE 20 MG/ML VIAL SLOW IVP SCH (09:00)
[2021-11-05] MEDS: Nitroglycerin 0.4 MG TAB (25 Tab Bottle) SL PRN ×2 (09:12→09:18)
[2021-11-05] MEDS: Ondansetron PF 4 MG/2 ML Vial IVP PRN ×2 (09:13→21:21)
[2021-11-05] MEDS: Aspirin 81 mg Enteric Coated Tablet PO SCH (10:00)
[2021-11-05] MEDS: Lisinopril 20 MG TAB PO SCH (10:00)
[2021-11-05] MEDS: Gabapentin 300 MG CAP PO SCH ×3 (10:00→21:20)
[2021-11-05] MEDS: Carvedilol 25 MG TAB PO SCH ×2 (10:02→17:04)
[2021-11-05] MEDS: Famotidine 20 MG TAB PO SCH ×2 (10:02→21:20)
[2021-11-05] MEDS: TICAGRELOR 90 MG TABLET PO SCH ×2 (10:02→21:30)
[2021-11-05] MEDS: Enoxaparin Sodium 40 MG/0.4 ML SYRINGE SC SCH (10:02)
[2021-11-05] MEDS: Methocarbamol 500 MG TAB PO PRN (10:17)
[2021-11-05] MEDS ORDERED: Labetalol HCl 100 MG/20 ML VIAL SLOW IVP SCH (11:00)
[2021-11-05] MEDS: Prochlorperazine Edisylate 10 MG in Sodium Chloride 0.9% 50 ML IVPB PRN (12:12)
[2021-11-05] MEDS ORDERED: Amlodipine 10 MG TAB PO SCH (13:00)
[2021-11-05 13:27] LABS: Anion Gap 20 mmol/L (10-20); BUN (Urea Nitrogen) 11 mg/dL (8.4-25.7); Calc. Creatinine Clearance 102 mL/min (70-130); Calcium 8.3 mg/dL (7.8-10.44); Carbon Dioxide 17 mmol/L (23-31); Chloride 98 mmol/L (98-107); Estimated GFR 101; Glucose 102 mg/dL (80-115); Potassium 3.8 mmol/L (3.5-5.1); Sodium 131 mmol/L (136-145)
[2021-11-05] MEDS ORDERED: Pantoprazole 40 MG VIAL IVP SCH (15:45)
[2021-11-05] MEDS: Atorvastatin Calcium 40 MG TAB PO SCH (21:20)
[2021-11-06] MEDS: HYDROcodone/Acetaminophen 7.5/325 mg Tablet PO PRN (05:50)
[2021-11-06] MEDS: Aspirin 81 mg Enteric Coated Tablet PO SCH (08:30)
[2021-11-06] MEDS: Carvedilol 25 MG TAB PO SCH (08:30)
[2021-11-06] MEDS: Scopolamine 1.5 mg/72 hour Patch TD SCH (08:31)
[2021-11-06] MEDS: TICAGRELOR 90 MG TABLET PO SCH (08:31)
[2021-11-06] MEDS: Famotidine 20 MG TAB PO SCH (08:31)
[2021-11-06] MEDS: Gabapentin 300 MG CAP PO SCH ×2 (08:31→15:00)
[2021-11-06] MEDS: Enoxaparin Sodium 40 MG/0.4 ML SYRINGE SC SCH (08:33)
[2021-11-06] MEDS: Lisinopril 20 MG TAB PO SCH (08:33)
[2021-11-06] MEDS ORDERED: Amlodipine 10 MG TAB PO SCH (09:00)
[2021-11-06 11:46] VITALS: BP 109/70; TEMP 96.9
== END 2021-11-06 15:45 | disposition home or self-care (01) | DRG 177 ==
LOC: ERS 20:28 → 2NO 23:57 → OBSVTOIN 11-01 11:18
PROVIDERS: ADMIT Family Medicine; ATTEND Family Medicine
PROC: 8E0ZXY6 Isolation (ICD-10-PCS; principal; 2021-11-01)
DX: U07.1 COVID-19 (principal); J12.82 Pneumonia due to coronavirus disease 2019; E87.1 Hypo-osmolality and hyponatremia; I10 Essential (primary) hypertension; I25.10 Atherosclerotic heart disease of native coronary artery without angina pectoris; R07.89 Other chest pain; R55 Syncope and collapse; R11.2 Nausea with vomiting, unspecified; G62.9 Polyneuropathy, unspecified; G89.29 Other chronic pain; M54.9 Dorsalgia, unspecified; I16.0 Hypertensive urgency; Z95.1 Presence of aortocoronary bypass graft; Z79.899 Other long term (current) drug therapy; Z79.82 Long term (current) use of aspirin; Z90.49 Acquired absence of other specified parts of digestive tract; Z87.442 Personal history of urinary calculi; Z95.828 Presence of other vascular implants and grafts; Z82.49 Family history of ischemic heart disease and other diseases of the circulatory system; Z87.891 Personal history of nicotine dependence; Z95.5 Presence of coronary angioplasty implant and graft; Z28.310 Unvaccinated for COVID-19
CPT/HCPCS: 36415; 71045; 74018; 80048; 80053; 80061; 83605; 83880; 84484; 85025; 87040; 93005; 93010; 93306; 94760; 96372; 96374; 96375; C9113; G0378; J0360; J0780; J1650; J1885; J2270; J2405

== ENCOUNTER 2021-11-09 03:58 | Inpatient (IN) | payer OTHER ==
[2021-11-09] MEDS ORDERED: Acetaminophen 500 MG TAB ONE (04:11)
[2021-11-09 05:24] LABS: Hemoglobin 11.5 g/dL (14.0-18.0); Mean Corpuscular HGB CONC 30.1 g/dL (32.0-36.0); Mean Corpuscular Hemoglobin 22.4 pg (27.0-31.0); Mean Corpuscular Volume 74.5 fL (78.0-98.0); Mean Platelet Volume 9.2 fL (7.4-10.4); Platelet Count 392 thou/uL (130-400); RBC Distribution Width 17.3 % (11.5-14.5); Red Blood Cell (RBC) Count 5.14 mill/uL (4.70-6.10); White Blood Cell (WBC) Count 15.6 thou/uL (4.8-10.8)
[2021-11-09 05:30] LABS: ALT (SGPT) 19 U/L (8-55); AST (SGOT) 13 U/L (5-34); Albumin 3.6 g/dL (3.4-4.8); Alkaline Phosphatase 85 U/L (40-110); Anion Gap 15 mmol/L (10-20); BUN (Urea Nitrogen) 9 mg/dL (8.4-25.7); Bilirubin, Total 0.5 mg/dL (0.2-1.2); Calc. Creatinine Clearance 0 mL/min (70-130); Calcium 8.9 mg/dL (7.8-10.44); Carbon Dioxide 21 mmol/L (23-31); Chloride 102 mmol/L (98-107); Estimated GFR 98; Globulin 3.3 g/dL (2.4-3.5); Glucose 146 mg/dL (80-115); Lipase 20 U/L (8-78); Magnesium 1.6 mg/dL (1.6-2.6); Potassium 3.2 mmol/L (3.5-5.1); Protein, Total 6.9 g/dL (5.8-8.1); Sodium 135 mmol/L (136-145)
[2021-11-09 06:02] LABS: #Lymphocytes 0.6 thou/uL (1.20-3.40); #Monocytes 1.1 thou/uL (0.11-0.59); #Neutrophils 13.9 thou/uL (1.40-6.50); %Eosinophils 0.3 % (0.0-10.0); %Lymphocytes 3.6 % (21.0-51.0); %Monocytes 7.2 % (0.0-10.0); %Neutrophils 88.9 % (42.0-75.0); Hypochromia SLIGHT = 6-15 cells (100X) (0-5/hpf); MDiff Complete? YES; Microcytosis SLIGHT = 6-15 cells (100X) (0-5/hpf)
[2021-11-09] MEDS ORDERED: Morphine 4 MG/ML VIAL ONE (06:29)
[2021-11-09] MEDS ORDERED: Ketorolac Tromethamine 30 MG/ML VIAL ONE (06:29)
[2021-11-09] MEDS ORDERED: ISOVUE-370 76%-LOCM 1 ML ONE (08:00)
[2021-11-09] MEDS ORDERED: Mag-Al 1200 mg/1200 mg/30 ML UDCUP ONE (08:11)
[2021-11-09] MEDS ORDERED: Lidocaine Viscous Sol 2% 15 ml UD Cup ONE (08:11)
[2021-11-09] MEDS ORDERED: Ondansetron ODT 4 MG TAB PO PRN (09:45)
[2021-11-09] MEDS ORDERED: traZODone HCl 50 MG TAB PO PRN (09:52)
[2021-11-09] MEDS ORDERED: Nitroglycerin 0.4 MG TAB (25 Tab Bottle) SL PRN (09:54)
[2021-11-09] MEDS ORDERED: Potassium Chloride 20 MEQ TAB PO SCH (10:00)
[2021-11-09 11:19] VITALS: BMI 27.1
[2021-11-09] MEDS: Acetaminophen 325 MG TAB PO PRN (11:57)
[2021-11-09] MEDS: Azithromycin 500 MG in Sodium Chloride 0.9% 250 ML 250 ML IVPB SCH (11:59)
[2021-11-09] MEDS ORDERED: guaiFENesin 200 MG TAB PO PRN (12:48)
[2021-11-09] MEDS: cefTRIAXone\\ROCEPHIN 1 GM in Sodium Chloride 0.9% 100 ML IVPB SCH (14:14)
[2021-11-09] MEDS: Morphine 2 MG/ML VIAL SLOW IVP PRN ×2 (14:14→19:43)
[2021-11-09] MEDS ORDERED: Dexamethasone 4 mg/ml Vial SLOW IVP SCH (16:30)
[2021-11-09] MEDS: guaiFENesin/Codeine 200 mg/20 mg 10 ml Cup PO PRN ×2 (17:47→23:28)
[2021-11-09] MEDS: Carvedilol 25 MG TAB PO SCH (17:47)
[2021-11-09] MEDS: Famotidine 20 MG TAB PO SCH (19:42)
[2021-11-09] MEDS: TICAGRELOR 90 MG TABLET PO SCH (19:42)
[2021-11-09] MEDS: Enoxaparin Sodium 40 MG/0.4 ML SYRINGE SC SCH (19:42)
[2021-11-09] MEDS: Atorvastatin Calcium 40 MG TAB PO SCH (19:42)
[2021-11-09] MEDS: Vancomycin 1 GM in Premix Bag 1 BAG IVPB SCH (19:43)
[2021-11-10] MEDS ORDERED: Labetalol HCl 100 MG/20 ML VIAL SLOW IVP PRN (00:46)
[2021-11-10] MEDS: Morphine 2 MG/ML VIAL SLOW IVP PRN ×5 (01:00→23:54)
[2021-11-10 05:36] LABS: Anion Gap 12 mmol/L (10-20); BUN (Urea Nitrogen) 10 mg/dL (8.4-25.7); Calc. Creatinine Clearance 105 mL/min (70-130); Carbon Dioxide 22 mmol/L (23-31); Chloride 104 mmol/L (98-107); Estimated GFR 103; Glucose 176 mg/dL (80-115); Potassium 4.2 mmol/L (3.5-5.1); Sodium 134 mmol/L (136-145)
[2021-11-10 05:48] LABS: #Lymphocytes 0.4 thou/uL (1.20-3.40); #Monocytes 0.1 thou/uL (0.11-0.59); #Neutrophils 7.9 thou/uL (1.40-6.50); %Basophils 0.2 % (0.0-1.0); %Lymphocytes 4.3 % (21.0-51.0); %Monocytes 1.7 % (0.0-10.0); %Neutrophils 93.8 % (42.0-75.0); Hemoglobin 10.5 g/dL (14.0-18.0); Mean Corpuscular HGB CONC 29.8 g/dL (32.0-36.0); Mean Corpuscular Hemoglobin 22.7 pg (27.0-31.0); Mean Corpuscular Volume 76.2 fL (78.0-98.0); Mean Platelet Volume 8.9 fL (7.4-10.4); Platelet Count 341 thou/uL (130-400); RBC Distribution Width 17.1 % (11.5-14.5); Red Blood Cell (RBC) Count 4.61 mill/uL (4.70-6.10); White Blood Cell (WBC) Count 8.4 thou/uL (4.8-10.8)
[2021-11-10] MEDS: guaiFENesin/Codeine 200 mg/20 mg 10 ml Cup PO PRN ×3 (06:04→20:44)
[2021-11-10] MEDS ORDERED: Aspirin 81 mg Enteric Coated Tablet PO SCH (09:00)
[2021-11-10] MEDS ORDERED: Dexamethasone 6 MG in Sodium Chloride 0.9% 50 ML IVPB SCH (09:00)
[2021-11-10] MEDS: Aspirin 325 mg Enteric Coated Tablet PO SCH (10:17)
[2021-11-10] MEDS: Lisinopril 20 MG TAB PO SCH (10:18)
[2021-11-10] MEDS: Amlodipine 10 MG TAB PO SCH (10:19)
[2021-11-10] MEDS: Famotidine 20 MG TAB PO SCH (10:19)
[2021-11-10] MEDS: Carvedilol 25 MG TAB PO SCH ×2 (10:19→16:15)
[2021-11-10] MEDS: Enoxaparin Sodium 40 MG/0.4 ML SYRINGE SC SCH ×2 (10:20→20:44)
[2021-11-10] MEDS: TICAGRELOR 90 MG TABLET PO SCH ×2 (10:20→20:45)
[2021-11-10] MEDS: Dexamethasone 4 mg/ml Vial SLOW IVP SCH (10:21)
[2021-11-10] MEDS: Vancomycin 1 GM in Premix Bag 1 BAG IVPB SCH ×2 (10:22→20:44)
[2021-11-10] MEDS: Azithromycin 500 MG in Sodium Chloride 0.9% 250 ML 250 ML IVPB SCH (10:24)
[2021-11-10] MEDS: cefTRIAXone\\ROCEPHIN 1 GM in Sodium Chloride 0.9% 100 ML IVPB SCH (13:18)
[2021-11-10] MEDS: NPH, Human Insulin Isophane 300 UNIT/3 ML VIAL SC SCH ×2 (13:19→14:17)
[2021-11-10] MEDS: Benzonatate 100 MG CAP PO SCH ×2 (16:15→20:45)
[2021-11-10] MEDS: Acetaminophen 325 MG TAB PO PRN (20:45)
[2021-11-10] MEDS: Atorvastatin Calcium 40 MG TAB PO SCH (20:45)
[2021-11-11] MEDS: Acetaminophen 325 MG TAB PO PRN ×3 (04:16→19:10)
[2021-11-11 06:04] LABS: Anion Gap 10 mmol/L (10-20); BUN (Urea Nitrogen) 13 mg/dL (8.4-25.7); Calc. Creatinine Clearance 105 mL/min (70-130); Calcium 8.9 mg/dL (7.8-10.44); Carbon Dioxide 23 mmol/L (23-31); Chloride 105 mmol/L (98-107); Estimated GFR 103; Glucose 169 mg/dL (80-115); Sodium 134 mmol/L (136-145)
[2021-11-11 06:19] LABS: #Lymphocytes 0.5 thou/uL (1.20-3.40); #Monocytes 0.5 thou/uL (0.11-0.59); %Eosinophils 0.1 % (0.0-10.0); Anisocytosis SLIGHT = 6-15 cells (100X) (0-5/hpf); Hemoglobin 9.4 g/dL (14.0-18.0); Hypochromia SLIGHT = 6-15 cells (100X) (0-5/hpf); MDiff Complete? YES; Mean Corpuscular HGB CONC 30.8 g/dL (32.0-36.0); Mean Corpuscular Volume 74.7 fL (78.0-98.0); Mean Platelet Volume 8.6 fL (7.4-10.4); Microcytosis SLIGHT = 6-15 cells (100X) (0-5/hpf); Platelet Count 387 thou/uL (130-400)
[2021-11-11] MEDS: Amlodipine 10 MG TAB PO SCH (09:13)
[2021-11-11] MEDS: Carvedilol 25 MG TAB PO SCH ×2 (09:13→19:11)
[2021-11-11] MEDS: Aspirin 325 mg Enteric Coated Tablet PO SCH (09:14)
[2021-11-11] MEDS: Benzonatate 100 MG CAP PO SCH ×3 (09:14→21:26)
[2021-11-11] MEDS: Enoxaparin Sodium 40 MG/0.4 ML SYRINGE SC SCH (09:16)
[2021-11-11] MEDS: Dexamethasone 4 mg/ml Vial SLOW IVP SCH (09:16)
[2021-11-11] MEDS: Lisinopril 20 MG TAB PO SCH (09:17)
[2021-11-11] MEDS: NPH, Human Insulin Isophane 300 UNIT/3 ML VIAL SC SCH (09:17)
[2021-11-11] MEDS: TICAGRELOR 90 MG TABLET PO SCH ×2 (09:32→20:07)
[2021-11-11] MEDS: Vancomycin 1 GM in Premix Bag 1 BAG IVPB SCH (09:34)
[2021-11-11 10:05] LABS: Vancomycin, Trough 27.9 ug/mL
[2021-11-11] MEDS: guaiFENesin/Codeine 200 mg/20 mg 10 ml Cup PO PRN ×2 (11:31→21:27)
[2021-11-11] MEDS: Azithromycin 500 MG in Sodium Chloride 0.9% 250 ML 250 ML IVPB SCH (13:18)
[2021-11-11] MEDS: cefTRIAXone\\ROCEPHIN 1 GM in Sodium Chloride 0.9% 100 ML IVPB SCH (14:59)
[2021-11-11] MEDS: Nitroglycerin 2% Ointment 1 INCH/1 GM Packet TOP SCH (20:07)
[2021-11-11] MEDS ORDERED: Metoprolol Tartrate 25 MG TAB PO SCH (21:00)
[2021-11-11] MEDS: Atorvastatin Calcium 40 MG TAB PO SCH (21:26)
[2021-11-11] MEDS: Fioricet 325/50/40 mg Tablet PO PRN (21:26)
[2021-11-12] MEDS: Fioricet 325/50/40 mg Tablet PO PRN ×2 (03:28→14:10)
[2021-11-12] MEDS: guaiFENesin/Codeine 200 mg/20 mg 10 ml Cup PO PRN (03:28)
[2021-11-12] MEDS ORDERED: Vancomycin HCl 750 MG in Sodium Chloride 0.9% 250 ML 250 ML IVPB SCH (09:00)
[2021-11-12] MEDS: Dexamethasone 4 mg/ml Vial SLOW IVP SCH (09:18)
[2021-11-12] MEDS: Benzonatate 100 MG CAP PO SCH ×4 (09:18→21:02)
[2021-11-12] MEDS: Aspirin 325 mg Enteric Coated Tablet PO SCH (09:18)
[2021-11-12] MEDS: Amlodipine 10 MG TAB PO SCH (09:18)
[2021-11-12] MEDS: Carvedilol 25 MG TAB PO SCH ×2 (09:18→17:00)
[2021-11-12] MEDS: Nitroglycerin 2% Ointment 1 INCH/1 GM Packet TOP SCH ×3 (09:19→21:02)
[2021-11-12] MEDS: Lisinopril 20 MG TAB PO SCH (09:19)
[2021-11-12] MEDS: TICAGRELOR 90 MG TABLET PO SCH ×2 (09:19→20:58)
[2021-11-12] MEDS: NPH, Human Insulin Isophane 300 UNIT/3 ML VIAL SC SCH (09:19)
[2021-11-12] MEDS: Azithromycin 500 MG in Sodium Chloride 0.9% 250 ML 250 ML IVPB SCH (11:49)
[2021-11-12] MEDS: cefTRIAXone\\ROCEPHIN 1 GM in Sodium Chloride 0.9% 100 ML IVPB SCH (13:17)
[2021-11-12] MEDS: Atorvastatin Calcium 40 MG TAB PO SCH (20:58)
[2021-11-13] MEDS: Fioricet 325/50/40 mg Tablet PO PRN ×3 (05:40→21:04)
[2021-11-13] MEDS: predniSONE 20 MG TAB PO SCH (09:24)
[2021-11-13] MEDS: Amlodipine 10 MG TAB PO SCH (09:24)
[2021-11-13] MEDS: Aspirin 325 mg Enteric Coated Tablet PO SCH (09:24)
[2021-11-13] MEDS: Carvedilol 25 MG TAB PO SCH ×2 (09:24→17:19)
[2021-11-13] MEDS: Lisinopril 20 MG TAB PO SCH (09:25)
[2021-11-13] MEDS: TICAGRELOR 90 MG TABLET PO SCH ×2 (09:25→20:35)
[2021-11-13] MEDS: Nitroglycerin 2% Ointment 1 INCH/1 GM Packet TOP SCH ×3 (09:25→20:35)
[2021-11-13] MEDS: Benzonatate 100 MG CAP PO SCH ×3 (09:25→20:35)
[2021-11-13] MEDS: NPH, Human Insulin Isophane 300 UNIT/3 ML VIAL SC SCH (09:37)
[2021-11-13] MEDS: cefTRIAXone\\ROCEPHIN 1 GM in Sodium Chloride 0.9% 100 ML IVPB SCH (11:56)
[2021-11-13] MEDS: Atorvastatin Calcium 40 MG TAB PO SCH (20:35)
[2021-11-14] MEDS: Benzonatate 100 MG CAP PO SCH (08:24)
[2021-11-14] MEDS: Acetaminophen 325 MG TAB PO PRN ×2 (08:24→13:37)
[2021-11-14] MEDS: TICAGRELOR 90 MG TABLET PO SCH (08:24)
[2021-11-14] MEDS: predniSONE 20 MG TAB PO SCH (08:24)
[2021-11-14] MEDS: Carvedilol 25 MG TAB PO SCH (08:24)
[2021-11-14] MEDS: Aspirin 325 mg Enteric Coated Tablet PO SCH (08:24)
[2021-11-14] MEDS ORDERED: Gabapentin 300 MG CAP PO SCH ×2 (09:30→15:00)
[2021-11-14] MEDS ORDERED: Methocarbamol 500 MG TAB PO SCH ×2 (09:30→17:00)
[2021-11-14] MEDS ORDERED: ADENOSINE 60 MG/20 ML VIAL ONE (09:51)
[2021-11-14] MEDS: Lisinopril 20 MG TAB PO SCH (13:07)
[2021-11-14] MEDS: Amlodipine 10 MG TAB PO SCH (13:08)
[2021-11-14] MEDS: NPH, Human Insulin Isophane 300 UNIT/3 ML VIAL SC SCH (13:09)
[2021-11-14] MEDS: Nitroglycerin 2% Ointment 1 INCH/1 GM Packet TOP SCH (13:11)
[2021-11-14] MEDS: cefTRIAXone\\ROCEPHIN 1 GM in Sodium Chloride 0.9% 100 ML IVPB SCH (13:39)
[2021-11-14 16:37] VITALS: BP 142/66; TEMP 98
== END 2021-11-14 16:39 | disposition home or self-care (01) | DRG 871 ==
LOC: ERS 03:58 → SURG B 09:45 → 2SW 09:45 → OBSVTOIN 11-11 12:07
PROVIDERS: ADMIT Hospitalist; ATTEND Hospitalist
PROC: 8E0ZXY6 Isolation (ICD-10-PCS; principal; 2021-11-11)
PROC: 3E03329 Introduction of Other Anti-infective into Peripheral Vein, Percutaneous Approach (ICD-10-PCS; 2021-11-11)
DX: A41.89 Other specified sepsis (principal); U07.1 COVID-19; J12.82 Pneumonia due to coronavirus disease 2019; L76.22 Postprocedural hemorrhage of skin and subcutaneous tissue following other procedure; I25.10 Atherosclerotic heart disease of native coronary artery without angina pectoris; I10 Essential (primary) hypertension; E78.5 Hyperlipidemia, unspecified; G62.9 Polyneuropathy, unspecified; G89.29 Other chronic pain; M54.9 Dorsalgia, unspecified; E87.6 Hypokalemia; T80.89XA Other complications following infusion, transfusion and therapeutic injection, initial encounter; Y84.8 Other medical procedures as the cause of abnormal reaction of the patient, or of later complication, without mention of misadventure at the time of the procedure; R73.9 Hyperglycemia, unspecified; T38.0X5A Adverse effect of glucocorticoids and synthetic analogues, initial encounter; R07.89 Other chest pain; Z95.1 Presence of aortocoronary bypass graft; Z79.899 Other long term (current) drug therapy; Z79.82 Long term (current) use of aspirin; Z95.828 Presence of other vascular implants and grafts; Z98.890 Other specified postprocedural states; Z90.49 Acquired absence of other specified parts of digestive tract; Z87.442 Personal history of urinary calculi; Z82.49 Family history of ischemic heart disease and other diseases of the circulatory system; Z28.310 Unvaccinated for COVID-19
CPT/HCPCS: 36415; 71045; 71275; 78452; 80048; 80053; 80202; 83605; 83690; 83735; 83880; 84145; 84484; 85025; 85379; 86140; 87040; 87070; 87081; 87205; 93005; 93010; 93017; 94640; 96365; 96366; 96367; 96372; 96375; 96376; A9500; G0378; J0153; J0456; J0696; J1100; J1650; J1815; J1885; J1956; J2270; J3370; J3490; J7050; J7512; J7620; Q0162; Q9966

== ENCOUNTER 2021-12-21 17:40 | Observation (INO) | payer OTHER ==
[~2021-12-21 17:40] MED LIST changes: +Iopamidol 370 76% 100 ML VIAL ONE; -Iopamidol-370 76% 500 ML 1 ML ONE
[2021-12-21 18:20] LABS: #Eosinphils 0.1 thou/uL (0.0-0.7); #Lymphocytes 1.6 thou/uL (1.20-3.40); #Monocytes 0.7 thou/uL (0.11-0.59); #Neutrophils 5.2 thou/uL (1.40-6.50); %Basophils 0.3 % (0.0-1.0); %Eosinophils 0.9 % (0.0-10.0); %Lymphocytes 20.5 % (21.0-51.0); %Monocytes 9.6 % (0.0-10.0); %Neutrophils 68.7 % (42.0-75.0); Hemoglobin 9.8 g/dL (14.0-18.0); Mean Corpuscular HGB CONC 30.9 g/dL (32.0-36.0); Mean Corpuscular Hemoglobin 22.9 pg (27.0-31.0); Platelet Count 424 thou/uL (130-400); RBC Distribution Width 17.7 % (11.5-14.5); Red Blood Cell (RBC) Count 4.28 mill/uL (4.70-6.10); White Blood Cell (WBC) Count 7.6 thou/uL (4.8-10.8)
[2021-12-21 18:48] LABS: ALT (SGPT) 21 U/L (8-55); AST (SGOT) 19 U/L (5-34); Albumin 4.2 g/dL (3.4-4.8); Alkaline Phosphatase 84 U/L (40-110); Anion Gap 16 mmol/L (10-20); BUN (Urea Nitrogen) 14 mg/dL (8.4-25.7); Bilirubin, Total 0.3 mg/dL (0.2-1.2); Calc. Creatinine Clearance 0 mL/min (70-130); Calcium 9.3 mg/dL (7.8-10.44); Carbon Dioxide 23 mmol/L (23-31); Chloride 104 mmol/L (98-107); Estimated GFR 71; Globulin 2.9 g/dL (2.4-3.5); Glucose 104 mg/dL (80-115); Potassium 4.3 mmol/L (3.5-5.1); Protein, Total 7.1 g/dL (5.8-8.1); Sodium 139 mmol/L (136-145)
[2021-12-21] MEDS ORDERED: Nitroglycerin 2% Ointment 1 INCH/1 GM Packet ONE (18:59)
[2021-12-21] MEDS ORDERED: Aspirin Chewable 81 MG TAB ONE (18:59)
[2021-12-21] MEDS ORDERED: Acetaminophen 500 MG TAB ONE (19:15)
[2021-12-21] MEDS ORDERED: Ondansetron ODT 4 MG TAB SL PRN (22:30)
[2021-12-21] MEDS ORDERED: Ondansetron PF 4 MG/2 ML Vial IVP PRN (22:30)
[2021-12-21] MEDS ORDERED: Acetaminophen 325 MG TAB PO PRN (22:30)
[2021-12-21] MEDS ORDERED: hydrALAZINE 20 MG/ML VIAL SLOW IVP PRN (23:07)
[2021-12-21] MEDS ORDERED: Nitroglycerin 0.4 MG TAB (25 Tab Bottle) SL PRN (23:07)
[2021-12-21] MEDS ORDERED: Acetaminophen 650 MG Suppository PR PRN (23:07)
[2021-12-21 23:37] VITALS: BMI 27.3
[2021-12-22] MEDS: Morphine 4 MG/ML VIAL SLOW IVP PRN ×4 (00:45→21:00)
[2021-12-22 05:02] LABS: #Lymphocytes 1.4 thou/uL (1.20-3.40); #Monocytes 0.6 thou/uL (0.11-0.59); #Neutrophils 3.2 thou/uL (1.40-6.50); %Basophils 0.3 % (0.0-1.0); %Eosinophils 0.9 % (0.0-10.0); %Lymphocytes 27.4 % (21.0-51.0); %Monocytes 10.9 % (0.0-10.0); %Neutrophils 60.5 % (42.0-75.0); Mean Corpuscular HGB CONC 30.9 g/dL (32.0-36.0); Mean Corpuscular Hemoglobin 23.3 pg (27.0-31.0); Mean Corpuscular Volume 75.3 fL (78.0-98.0); Mean Platelet Volume 7.7 fL (7.4-10.4); Platelet Count 315 thou/uL (130-400); RBC Distribution Width 17.3 % (11.5-14.5); Red Blood Cell (RBC) Count 3.85 mill/uL (4.70-6.10); White Blood Cell (WBC) Count 5.3 thou/uL (4.8-10.8)
[2021-12-22 05:19] LABS: Anion Gap 9 mmol/L (10-20); BUN (Urea Nitrogen) 13 mg/dL (8.4-25.7); Calc. Creatinine Clearance 94 mL/min (70-130); Calcium 8.8 mg/dL (7.8-10.44); Carbon Dioxide 28 mmol/L (23-31); Cardiac Risk 4.9 (Less than 4.5); Chloride 105 mmol/L (98-107); Cholesterol 190 mg/dl (< 200 Desired); Estimated GFR 98; Glucose 106 mg/dL (80-115); HDL Cholesterol 39 mg/dL (>60 Neg Risk); LDL Cholesterol, Calculated 131 mg/dL; Sodium 138 mmol/L (136-145); Triglycerides 99 mg/dL (Less than 150)
[2021-12-22 05:22] LABS: Hypochromia SLIGHT = 6-15 cells (100X) (0-5/hpf); Microcytosis SLIGHT = 6-15 cells (100X) (0-5/hpf)
[2021-12-22] MEDS ORDERED: Amlodipine 10 MG TAB PO SCH (09:00)
[2021-12-22] MEDS: TICAGRELOR 90 MG TABLET PO SCH ×2 (09:21→20:58)
[2021-12-22] MEDS: Carvedilol 25 MG TAB PO SCH ×2 (09:21→18:29)
[2021-12-22] MEDS: Gabapentin 300 MG CAP PO SCH ×3 (09:21→20:58)
[2021-12-22] MEDS: Aspirin Chewable 81 MG TAB PO SCH (09:21)
[2021-12-22] MEDS ORDERED: Midazolam HCl 2 mg/2 ml Vial SLOW IVP SCH (11:00)
[2021-12-22] MEDS ORDERED: Lisinopril 20 MG TAB PO SCH (14:45)
[2021-12-22] MEDS ORDERED: NIFEdipine XL 30 MG TAB PO SCH (21:00)
[2021-12-22] MEDS ORDERED: Atorvastatin Calcium 40 MG TAB PO SCH (21:00)
[2021-12-22] MEDS: Acetaminophen 500 MG TAB PO SCH (21:19)
[2021-12-22] MEDS: NIFEdipine XL 30 MG TAB PO SCH (21:20)
[2021-12-22] MEDS: oxyCODONE 5 MG TAB PO PRN (21:21)
[2021-12-23] MEDS: oxyCODONE 5 MG TAB PO PRN ×3 (02:00→11:20)
[2021-12-23 06:02] LABS: #Basophils 0.1 thou/uL (0.0-0.2); #Eosinphils 0.1 thou/uL (0.0-0.7); #Lymphocytes 1.6 thou/uL (1.20-3.40); #Monocytes 0.5 thou/uL (0.11-0.59); #Neutrophils 2.5 thou/uL (1.40-6.50); %Basophils 1.1 % (0.0-1.0); %Lymphocytes 33.5 % (21.0-51.0); %Neutrophils 52.5 % (42.0-75.0); Hemoglobin 9.1 g/dL (14.0-18.0); Mean Corpuscular HGB CONC 30.2 g/dL (32.0-36.0); Mean Corpuscular Hemoglobin 22.7 pg (27.0-31.0); Mean Platelet Volume 8.5 fL (7.4-10.4); Platelet Count 336 thou/uL (130-400); RBC Distribution Width 17.5 % (11.5-14.5); Red Blood Cell (RBC) Count 4.01 mill/uL (4.70-6.10); White Blood Cell (WBC) Count 4.7 thou/uL (4.8-10.8)
[2021-12-23 06:14] LABS: Anion Gap 13 mmol/L (10-20); BUN (Urea Nitrogen) 13 mg/dL (8.4-25.7); Calc. Creatinine Clearance 94 mL/min (70-130); Calcium 9.5 mg/dL (7.8-10.44); Carbon Dioxide 25 mmol/L (23-31); Chloride 101 mmol/L (98-107); Estimated GFR 98; Glucose 112 mg/dL (80-115); Potassium 3.9 mmol/L (3.5-5.1); Sodium 135 mmol/L (136-145)
[2021-12-23] MEDS: Gabapentin 300 MG CAP PO SCH ×2 (08:22→14:39)
[2021-12-23] MEDS: TICAGRELOR 90 MG TABLET PO SCH (08:22)
[2021-12-23] MEDS: NIFEdipine XL 30 MG TAB PO SCH (08:22)
[2021-12-23] MEDS: Aspirin Chewable 81 MG TAB PO SCH (08:22)
[2021-12-23] MEDS: Acetaminophen 500 MG TAB PO SCH ×2 (08:22→14:40)
[2021-12-23] MEDS: Carvedilol 25 MG TAB PO SCH (08:23)
[2021-12-23] MEDS ORDERED: Lisinopril 20 MG TAB PO SCH (09:00)
[2021-12-23] MEDS ORDERED: Ondansetron PF 4 MG/2 ML Vial IVP SCH (10:00)
[2021-12-23 11:48] VITALS: TEMP 98.2
[2021-12-23 14:15] VITALS: BP 133/66
== END 2021-12-23 16:08 | disposition home or self-care (01) ==
LOC: ERS 17:40 → NEURO 20:45
PROVIDERS: ADMIT Internal Medicine; ATTEND Internal Medicine
DX: R07.89 Other chest pain (principal); I65.21 Occlusion and stenosis of right carotid artery; E78.5 Hyperlipidemia, unspecified; I25.10 Atherosclerotic heart disease of native coronary artery without angina pectoris; I10 Essential (primary) hypertension; G62.9 Polyneuropathy, unspecified; M47.22 Other spondylosis with radiculopathy, cervical region; M50.121 Cervical disc disorder at C4-C5 level with radiculopathy; M43.12 Spondylolisthesis, cervical region; I70.8 Atherosclerosis of other arteries; M48.02 Spinal stenosis, cervical region; M48.03 Spinal stenosis, cervicothoracic region; G89.29 Other chronic pain; M79.602 Pain in left arm; M79.601 Pain in right arm; I73.9 Peripheral vascular disease, unspecified; I08.3 Combined rheumatic disorders of mitral, aortic and tricuspid valves; Z86.16 Personal history of COVID-19; Z86.73 Personal history of transient ischemic attack (TIA), and cerebral infarction without residual deficits; Z79.02 Long term (current) use of antithrombotics/antiplatelets; Z79.899 Other long term (current) drug therapy; Z95.1 Presence of aortocoronary bypass graft; Z95.820 Peripheral vascular angioplasty status with implants and grafts; Z20.822 Contact with and (suspected) exposure to COVID-19
CPT/HCPCS: 70450; 70496; 70498; 70551; 71045; 72141; 80048 ×2; 80053; 80061; 84484 ×2; 85025 ×3; 85652; 86140; 93005; 93306; 93880; 94760; 97116; 99285; U0003; U0005; 36415; 96374; 96375; 96376; G0378; J0360; J2250; J2270; J2405; Q9967

== ENCOUNTER 2022-05-18 12:39 | Emergency (ER) | payer OTHER ==
[2022-05-18 13:38] LABS: #Eosinphils 0.1 thou/uL (0.0-0.7); #Lymphocytes 1.2 thou/uL (1.20-3.40); #Monocytes 0.5 thou/uL (0.11-0.59); #Neutrophils 4.9 thou/uL (1.40-6.50); %Lymphocytes 18.5 % (21.0-51.0); %Monocytes 7.1 % (0.0-10.0); %Neutrophils 73.4 % (42.0-75.0); Hemoglobin 11.6 g/dL (14.0-18.0); Mean Corpuscular HGB CONC 30.7 g/dL (32.0-36.0); Mean Corpuscular Hemoglobin 23.1 pg (27.0-31.0); Mean Corpuscular Volume 75.3 fl (78.0-98.0); Mean Platelet Volume 7.9 fL (7.4-10.4); Platelet Count 408 10x3/uL (130-400); RBC Distribution Width 16.5 % (11.5-14.5); Red Blood Cell (RBC) Count 5.01 mill/uL (4.70-6.10); White Blood Cell (WBC) Count 6.7 10x3/uL (4.8-10.8)
[2022-05-18 13:59] LABS: ALT (SGPT) 11 U/L (8-55); AST (SGOT) 12 U/L (5-34); Albumin 4.4 g/dL (3.4-4.8); Alkaline Phosphatase 78 U/L (40-110); Anion Gap 12 mmol/L (10-20); BUN (Urea Nitrogen) 8 mg/dL (8.4-25.7); Bilirubin, Total 0.5 mg/dL (0.2-1.2); CK (CPK) 85 U/L (30-200); Calc. Creatinine Clearance 0 mL/min (70-130); Calcium 9.3 mg/dL (7.8-10.44); Carbon Dioxide 22 mmol/L (23-31); Chloride 105 mmol/L (98-107); Estimated GFR 97; Globulin 2.3 g/dL (2.4-3.5); Glucose 128 mg/dL (80-115); Potassium 4.3 mmol/L (3.5-5.1); Protein, Total 6.7 g/dL (5.8-8.1); Sodium 135 mmol/L (136-145)
== END 2022-05-18 16:50 | disposition home or self-care (01) ==
LOC: ERS 12:39
DX: R07.9 Chest pain, unspecified (principal); E78.00 Pure hypercholesterolemia, unspecified; I10 Essential (primary) hypertension; Z79.899 Other long term (current) drug therapy
CPT/HCPCS: 36415; 71045; 80053; 82550; 84484; 85025; 93005

== ENCOUNTER 2022-06-17 15:49 | Inpatient (IN) | payer OTHER ==
[~2022-06-17 15:49] MED LIST changes: -Iopamidol 370 76% 100 ML VIAL ONE; +Iopamidol 370 76% 75 ML VIAL FS ONE
[2022-06-17] MEDS ORDERED: Morphine 4 MG/ML VIAL ONE ×2 (16:13→18:10)
[2022-06-17] MEDS ORDERED: Labetalol HCl 100 MG/20 ML VIAL ONE (16:14)
[2022-06-17] MEDS ORDERED: Acetaminophen 500 MG TAB ONE (16:14)
[2022-06-17] MEDS ORDERED: Nitroglycerin 2% Ointment 1 INCH/1 GM Packet ONE (16:14)
[2022-06-17 16:29] LABS: #Eosinphils 0.1 thou/uL (0.0-0.7); #Lymphocytes 1.7 thou/uL (1.20-3.40); #Monocytes 0.6 thou/uL (0.11-0.59); #Neutrophils 3.4 thou/uL (1.40-6.50); %Basophils 0.4 % (0.0-1.0); %Eosinophils 1.4 % (0.0-10.0); %Lymphocytes 28.7 % (21.0-51.0); %Monocytes 10.9 % (0.0-10.0); %Neutrophils 58.7 % (42.0-75.0); Hemoglobin 12.1 g/dL (14.0-18.0); Mean Corpuscular HGB CONC 31.4 g/dL (32.0-36.0); Mean Corpuscular Hemoglobin 23.9 pg (27.0-31.0); Platelet Count 372 10x3/uL (130-400); RBC Distribution Width 16.8 % (11.5-14.5); Red Blood Cell (RBC) Count 5.05 mill/uL (4.70-6.10); White Blood Cell (WBC) Count 5.8 10x3/uL (4.8-10.8)
[2022-06-17] MEDS ORDERED: Lidocaine Viscous Sol 2% 15 ml UD Cup ONE (16:45)
[2022-06-17] MEDS ORDERED: Mag-Al 1200 mg/1200 mg/30 ML UDCUP ONE (16:45)
[2022-06-17 16:51] LABS: ALT (SGPT) 17 U/L (8-55); AST (SGOT) 20 U/L (5-34); Albumin 4.3 g/dL (3.4-4.8); Alkaline Phosphatase 72 U/L (40-110); Anion Gap 13 mmol/L (10-20); BUN (Urea Nitrogen) 8 mg/dL (8.4-25.7); Bilirubin, Total 0.3 mg/dL (0.2-1.2); Calc. Creatinine Clearance 0 mL/min (70-130); Calcium 9.4 mg/dL (7.8-10.44); Carbon Dioxide 22 mmol/L (23-31); Chloride 104 mmol/L (98-107); Estimated GFR 101; Globulin 2.6 g/dL (2.4-3.5); Glucose 96 mg/dL (80-115); Potassium 3.7 mmol/L (3.5-5.1); Protein, Total 6.9 g/dL (5.8-8.1); Sodium 135 mmol/L (136-145)
[2022-06-17] MEDS ORDERED: Ondansetron PF 4 MG/2 ML Vial ONE ×2 (18:10→20:51)
[2022-06-17 21:59] LABS: Troponin I Less than 0.010 ng/mL (< 0.028)
[2022-06-17 22:55] VITALS: BMI 25.4
[2022-06-17] MEDS: Morphine 2 MG/ML VIAL SLOW IVP PRN (23:17)
[2022-06-17 23:18] LABS: SARS-CoV-2 NAA Rapid Test Not Detected (NotDetected)
[2022-06-18 00:05] LABS: Troponin I Less than 0.010 ng/mL (< 0.028)
[2022-06-18] MEDS: Morphine 2 MG/ML VIAL SLOW IVP PRN (03:37)
[2022-06-18 03:41] LABS: Bacteria/HPF None Seen HPF (None Seen); Bilirubin Negative (Negative); Blood, Urine Negative (Negative); CAUTI Indications for Culture Dysuria,urgency,freq; Clarity Clear (Clear); Glucose, Urine (Dipstick) Normal (Negative); Ketone, Urine Negative (Negative); Leukocyte Negative Leu/uL (Negative); Nitrite Negative (Negative); Protein, Urine (Dipstick) 10 mg/dL (Neg-Trace); RBC/HPF 0-3 HPF (0-3); Squamous Epithelial None Seen HPF (0-3); Urobilinogen Normal mg/dL (Less than 2); WBC/HPF 0-3 HPF (0-3); pH, Urine 6.5 (5.0-9.0)
[2022-06-18] MEDS: Ondansetron PF 4 MG/2 ML Vial IVP PRN (03:42)
[2022-06-18 03:43] LABS: Urine Culture Reflex No No
[2022-06-18 05:05] LABS: #Eosinphils 0.1 thou/uL (0.0-0.7); #Lymphocytes 1.4 thou/uL (1.20-3.40); #Monocytes 0.7 thou/uL (0.11-0.59); #Neutrophils 5.2 thou/uL (1.40-6.50); %Basophils 0.3 % (0.0-1.0); %Eosinophils 0.7 % (0.0-10.0); %Lymphocytes 19.2 % (21.0-51.0); %Monocytes 9.1 % (0.0-10.0); %Neutrophils 70.6 % (42.0-75.0); Hemoglobin 10.9 g/dL (14.0-18.0); Mean Corpuscular HGB CONC 29.9 g/dL (32.0-36.0); Mean Corpuscular Hemoglobin 22.8 pg (27.0-31.0); Mean Corpuscular Volume 76.2 fl (78.0-98.0); Platelet Count 330 10x3/uL (130-400); RBC Distribution Width 16.5 % (11.5-14.5); Red Blood Cell (RBC) Count 4.78 mill/uL (4.70-6.10); White Blood Cell (WBC) Count 7.3 10x3/uL (4.8-10.8)
[2022-06-18 05:19] LABS: Anion Gap 15 mmol/L (10-20); BUN (Urea Nitrogen) 8 mg/dL (8.4-25.7); Calc. Creatinine Clearance 112 mL/min (70-130); Calcium 8.8 mg/dL (7.8-10.44); Carbon Dioxide 17 mmol/L (23-31); Chloride 105 mmol/L (98-107); Estimated GFR 105; Glucose 96 mg/dL (80-115); Sodium 132 mmol/L (136-145)
[2022-06-18] MEDS ORDERED: Lisinopril 20 MG TAB PO SCH ×2 (06:30→09:00)
[2022-06-18] MEDS ORDERED: Carvedilol 25 MG TAB PO SCH ×3 (06:30→20:00)
[2022-06-18] MEDS ORDERED: FENTANYL 50 MCG/ML 1 ML VIAL ONE ×2 (06:41→08:16)
[2022-06-18] MEDS ORDERED: Midazolam HCl 2 mg/2 ml Vial ONE ×2 (06:42→08:16)
[2022-06-18] MEDS ORDERED: Heparin 10,000 UNITS/ 10 ML VIAL ONE (06:43)
[2022-06-18] MEDS ORDERED: Nitroglycerin 100MG/250ML BOT 250 ML ONE (06:43)
[2022-06-18] MEDS ORDERED: Adenosine 6 MG/2 ML VIAL ONE (06:43)
[2022-06-18] MEDS ORDERED: Lidocaine 1% (PF) 30 ML VIAL ONE (06:43)
[2022-06-18] MEDS ORDERED: TICAGRELOR 90 MG TABLET ONE (09:37)
[2022-06-18] MEDS ORDERED: Ondansetron PF 4 MG/2 ML Vial ONE (09:41)
[2022-06-18] MEDS ORDERED: Iopamidol 370 76% 50 ML VIAL FS ONE (10:14)
[2022-06-18] MEDS ORDERED: Iopamidol 370 76% 100 ML VIAL ONE (10:14)
[2022-06-18] MEDS ORDERED: Morphine 2 MG/ML VIAL ONE (11:21)
[2022-06-18] MEDS: Gabapentin 300 MG CAP PO SCH ×3 (12:33→20:44)
[2022-06-18] MEDS: Aspirin Chewable 81 MG TAB PO SCH (12:33)
[2022-06-18] MEDS: TICAGRELOR 90 MG TABLET PO SCH ×2 (12:34→20:43)
[2022-06-18] MEDS: Acetaminophen 325 MG TAB PO PRN ×2 (14:13→18:23)
[2022-06-18] MEDS: Atorvastatin Calcium 40 MG TAB PO SCH (20:43)
[2022-06-19 05:00] LABS: #Eosinphils 0.1 thou/uL (0.0-0.7); #Lymphocytes 0.9 thou/uL (1.20-3.40); #Monocytes 0.5 thou/uL (0.11-0.59); #Neutrophils 3.5 thou/uL (1.40-6.50); %Basophils 0.2 % (0.0-1.0); %Eosinophils 1.7 % (0.0-10.0); %Lymphocytes 18.6 % (21.0-51.0); %Monocytes 9.9 % (0.0-10.0); %Neutrophils 69.6 % (42.0-75.0); Mean Corpuscular Hemoglobin 23.8 pg (27.0-31.0); Mean Corpuscular Volume 76.7 fl (78.0-98.0); Mean Platelet Volume 8.3 fL (7.4-10.4); Platelet Count 219 10x3/uL (130-400); RBC Distribution Width 16.4 % (11.5-14.5); Red Blood Cell (RBC) Count 3.37 mill/uL (4.70-6.10)
[2022-06-19 05:26] LABS: ALT (SGPT) 46 U/L (8-55); AST (SGOT) 21 U/L (5-34); Alkaline Phosphatase 80 U/L (40-110); Anion Gap 10 mmol/L (10-20); BUN (Urea Nitrogen) 10 mg/dL (8.4-25.7); Bilirubin, Total 0.3 mg/dL (0.2-1.2); Calc. Creatinine Clearance 95 mL/min (70-130); Calcium 8.9 mg/dL (7.8-10.44); Carbon Dioxide 25 mmol/L (23-31); Chloride 103 mmol/L (98-107); Estimated GFR 100; Glucose 115 mg/dL (80-115); Potassium 3.9 mmol/L (3.5-5.1); Sodium 134 mmol/L (136-145)
[2022-06-19] MEDS: Morphine 2 MG/ML VIAL SLOW IVP PRN ×3 (06:16→22:27)
[2022-06-19] MEDS: Carvedilol 25 MG TAB PO SCH ×2 (09:30→17:34)
[2022-06-19] MEDS: Gabapentin 300 MG CAP PO SCH ×3 (09:30→20:27)
[2022-06-19] MEDS: Aspirin Chewable 81 MG TAB PO SCH (09:30)
[2022-06-19] MEDS: Lisinopril 20 MG TAB PO SCH (09:32)
[2022-06-19] MEDS: TICAGRELOR 90 MG TABLET PO SCH ×2 (09:32→20:27)
[2022-06-19] MEDS: Acetaminophen 325 MG TAB PO PRN (09:42)
[2022-06-19] MEDS: Lidocaine 5% Patch TD SCH (15:38)
[2022-06-19] MEDS: HYDROcodone/Acetaminophen 5/325 mg Tablet PO PRN ×2 (15:40→20:28)
[2022-06-19] MEDS: Atorvastatin Calcium 40 MG TAB PO SCH (20:27)
[2022-06-20] MEDS: Transdermal Patch Removal TOP SCH (02:02)
[2022-06-20] MEDS: Morphine 2 MG/ML VIAL SLOW IVP PRN (04:03)
[2022-06-20 05:55] LABS: Cardiac Risk 3.7 (Less than 4.5)
[2022-06-20] MEDS: Aspirin Chewable 81 MG TAB PO SCH (09:00)
[2022-06-20] MEDS: Carvedilol 25 MG TAB PO SCH ×2 (09:00→16:53)
[2022-06-20] MEDS: TICAGRELOR 90 MG TABLET PO SCH ×2 (09:01→21:37)
[2022-06-20] MEDS: Gabapentin 300 MG CAP PO SCH ×3 (09:01→21:36)
[2022-06-20] MEDS: Lisinopril 20 MG TAB PO SCH (09:01)
[2022-06-20] MEDS: Ondansetron PF 4 MG/2 ML Vial IVP PRN (09:02)
[2022-06-20] MEDS: HYDROcodone/Acetaminophen 5/325 mg Tablet PO PRN ×3 (09:10→21:37)
[2022-06-20] MEDS ORDERED: Polyethylene Glycol 3350 17 GM Packet PO PRN (09:47)
[2022-06-20] MEDS ORDERED: Senokot S 8.6-50 MG TAB PO SCH (10:00)
[2022-06-20] MEDS ORDERED: Amlodipine 5 MG TAB PO SCH (12:30)
[2022-06-20] MEDS: Lidocaine 5% Patch TD SCH (16:53)
[2022-06-20] MEDS: Senokot S 8.6-50 MG TAB PO SCH (21:37)
[2022-06-20] MEDS: Atorvastatin Calcium 40 MG TAB PO SCH (21:37)
[2022-06-21] MEDS: Transdermal Patch Removal TOP SCH ×2 (03:25→23:13)
[2022-06-21] MEDS: HYDROcodone/Acetaminophen 5/325 mg Tablet PO PRN ×4 (03:34→20:52)
[2022-06-21] MEDS: Gabapentin 300 MG CAP PO SCH ×3 (09:26→20:53)
[2022-06-21] MEDS: Aspirin Chewable 81 MG TAB PO SCH (09:26)
[2022-06-21] MEDS: Amlodipine 5 MG TAB PO SCH (09:26)
[2022-06-21] MEDS: Carvedilol 25 MG TAB PO SCH ×2 (09:26→18:22)
[2022-06-21] MEDS: Senokot S 8.6-50 MG TAB PO SCH ×2 (09:27→20:54)
[2022-06-21] MEDS: Lisinopril 20 MG TAB PO SCH (09:27)
[2022-06-21] MEDS: TICAGRELOR 90 MG TABLET PO SCH ×2 (09:27→20:54)
[2022-06-21] MEDS: Ondansetron PF 4 MG/2 ML Vial IVP PRN ×2 (09:28→20:54)
[2022-06-21 17:15] LABS: #Lymphocytes 1.1 thou/uL (1.20-3.40); #Monocytes 0.5 thou/uL (0.11-0.59); #Neutrophils 4.7 thou/uL (1.40-6.50); %Eosinophils 0.5 % (0.0-10.0); %Lymphocytes 16.9 % (21.0-51.0); %Monocytes 8.3 % (0.0-10.0); %Neutrophils 74.3 % (42.0-75.0); Hemoglobin 8.8 g/dL (14.0-18.0); Mean Corpuscular HGB CONC 31.6 g/dL (32.0-36.0); Mean Corpuscular Hemoglobin 23.7 pg (27.0-31.0); Mean Platelet Volume 8.4 fL (7.4-10.4); Platelet Count 235 10x3/uL (130-400); RBC Distribution Width 16.7 % (11.5-14.5); Red Blood Cell (RBC) Count 3.69 mill/uL (4.70-6.10); White Blood Cell (WBC) Count 6.3 10x3/uL (4.8-10.8)
[2022-06-21 17:26] LABS: Hypochromia SLIGHT = 6-15 cells (100X) (0-5/hpf); MDiff Complete? YES; Microcytosis SLIGHT = 6-15 cells (100X) (0-5/hpf); Ovalocytes SLIGHT = 2-5 cells (100X) (0-1/hpf); Platelet Morphology Comment Appears Adequate; Polychromasia SLIGHT = 2-3 cells (100X) (0-2/hpf)
[2022-06-21] MEDS: Lidocaine 5% Patch TD SCH (18:24)
[2022-06-21] MEDS: Acetaminophen 325 MG TAB PO PRN (18:26)
[2022-06-21] MEDS: Atorvastatin Calcium 40 MG TAB PO SCH (20:54)
[2022-06-21] MEDS ORDERED: Clopidogrel Bisulfate 75 MG TAB PO SCH (21:00)
[2022-06-22] MEDS: Carvedilol 25 MG TAB PO SCH ×2 (08:23→17:45)
[2022-06-22] MEDS: Lisinopril 20 MG TAB PO SCH (08:24)
[2022-06-22] MEDS: Aspirin Chewable 81 MG TAB PO SCH (08:24)
[2022-06-22] MEDS: Amlodipine 5 MG TAB PO SCH (08:24)
[2022-06-22] MEDS: Gabapentin 300 MG CAP PO SCH ×3 (08:24→21:32)
[2022-06-22] MEDS: TICAGRELOR 90 MG TABLET PO SCH ×2 (08:25→21:32)
[2022-06-22] MEDS: HYDROcodone/Acetaminophen 5/325 mg Tablet PO PRN ×3 (08:25→20:15)
[2022-06-22] MEDS: Senokot S 8.6-50 MG TAB PO SCH ×2 (08:26→21:32)
[2022-06-22] MEDS: Lidocaine 5% Patch TD SCH (15:08)
[2022-06-22] MEDS ORDERED: Morphine 2 MG/ML VIAL SLOW IVP SCH (15:15)
[2022-06-22] MEDS: Transdermal Patch Removal TOP SCH (20:37)
[2022-06-22] MEDS: Atorvastatin Calcium 40 MG TAB PO SCH (21:32)
[2022-06-23] MEDS: HYDROcodone/Acetaminophen 5/325 mg Tablet PO PRN ×5 (00:38→21:26)
[2022-06-23] MEDS: Aspirin Chewable 81 MG TAB PO SCH (09:13)
[2022-06-23] MEDS: Carvedilol 25 MG TAB PO SCH ×2 (09:13→16:52)
[2022-06-23] MEDS: Amlodipine 5 MG TAB PO SCH (09:13)
[2022-06-23] MEDS: Gabapentin 300 MG CAP PO SCH ×3 (09:13→21:21)
[2022-06-23] MEDS: Lisinopril 20 MG TAB PO SCH (09:14)
[2022-06-23] MEDS: Senokot S 8.6-50 MG TAB PO SCH ×2 (09:14→21:20)
[2022-06-23] MEDS: TICAGRELOR 90 MG TABLET PO SCH ×2 (09:14→21:21)
[2022-06-23] MEDS: Ondansetron PF 4 MG/2 ML Vial IVP PRN ×2 (09:16→15:19)
[2022-06-23] MEDS: Lidocaine 5% Patch TD SCH (15:12)
[2022-06-23 15:53] LABS: Bacteria/HPF None Seen HPF (None Seen); Bilirubin Negative (Negative); Blood, Urine Negative (Negative); CAUTI Indications for Culture Pelvic or flank pain; Clarity Clear (Clear); Glucose, Urine (Dipstick) Normal (Negative); Ketone, Urine Negative (Negative); Leukocyte Negative Leu/uL (Negative); Mucous/LPF Rare LPF (<2+); Nitrite Negative (Negative); Protein, Urine (Dipstick) 10 mg/dL (Neg-Trace); RBC/HPF 0-3 HPF (0-3); Specific Gravity, Urine 1.024 (1.002-1.036); Squamous Epithelial 0-3 HPF (0-3); Urobilinogen Normal mg/dL (Less than 2); WBC/HPF 0-3 HPF (0-3); pH, Urine 6.5 (5.0-9.0)
[2022-06-23 15:55] LABS: Urine Culture Reflex No No
[2022-06-23] MEDS: Atorvastatin Calcium 40 MG TAB PO SCH (21:20)
[2022-06-24] MEDS: Transdermal Patch Removal TOP SCH (03:50)
[2022-06-24] MEDS: HYDROcodone/Acetaminophen 5/325 mg Tablet PO PRN ×4 (04:56→20:46)
[2022-06-24 04:57] LABS: #Eosinphils 0.1 thou/uL (0.0-0.7); #Lymphocytes 1.3 thou/uL (1.20-3.40); #Monocytes 0.6 thou/uL (0.11-0.59); #Neutrophils 3.9 thou/uL (1.40-6.50); %Basophils 0.3 % (0.0-1.0); %Eosinophils 1.1 % (0.0-10.0); %Lymphocytes 21.5 % (21.0-51.0); %Monocytes 10.4 % (0.0-10.0); %Neutrophils 66.7 % (42.0-75.0); Hemoglobin 9.4 g/dL (14.0-18.0); Mean Corpuscular HGB CONC 31.2 g/dL (32.0-36.0); Mean Corpuscular Hemoglobin 23.8 pg (27.0-31.0); Mean Corpuscular Volume 76.2 fl (78.0-98.0); Mean Platelet Volume 8.1 fL (7.4-10.4); Platelet Count 259 10x3/uL (130-400); RBC Distribution Width 16.8 % (11.5-14.5); Red Blood Cell (RBC) Count 3.97 mill/uL (4.70-6.10); White Blood Cell (WBC) Count 5.8 10x3/uL (4.8-10.8)
[2022-06-24 05:20] LABS: Anion Gap 11 mmol/L (10-20); BUN (Urea Nitrogen) 17 mg/dL (8.4-25.7); Calc. Creatinine Clearance 91 mL/min (70-130); Calcium 9.1 mg/dL (7.8-10.44); Carbon Dioxide 26 mmol/L (23-31); Chloride 101 mmol/L (98-107); Estimated GFR 99; Glucose 109 mg/dL (80-115); Potassium 4.5 mmol/L (3.5-5.1); Sodium 133 mmol/L (136-145)
[2022-06-24] MEDS: Carvedilol 25 MG TAB PO SCH ×3 (08:58→18:58)
[2022-06-24] MEDS: Amlodipine 5 MG TAB PO SCH (08:58)
[2022-06-24] MEDS: Aspirin Chewable 81 MG TAB PO SCH (08:58)
[2022-06-24] MEDS: Gabapentin 300 MG CAP PO SCH ×3 (08:58→20:45)
[2022-06-24] MEDS: Lisinopril 20 MG TAB PO SCH (08:59)
[2022-06-24] MEDS: Senokot S 8.6-50 MG TAB PO SCH ×2 (08:59→20:46)
[2022-06-24] MEDS: TICAGRELOR 90 MG TABLET PO SCH ×2 (09:00→20:46)
[2022-06-24] MEDS: Ondansetron PF 4 MG/2 ML Vial IVP PRN ×2 (09:04→15:02)
[2022-06-24] MEDS ORDERED: Fleet Enema 133 ML BOT PR SCH (09:30)
[2022-06-24] MEDS: Lidocaine 5% Patch TD SCH (15:05)
[2022-06-24] MEDS: Atorvastatin Calcium 40 MG TAB PO SCH (20:45)
[2022-06-25] MEDS: HYDROcodone/Acetaminophen 5/325 mg Tablet PO PRN ×3 (01:26→09:38)
[2022-06-25] MEDS: Transdermal Patch Removal TOP SCH (04:00)
[2022-06-25] MEDS: Ondansetron PF 4 MG/2 ML Vial IVP PRN (05:20)
[2022-06-25 08:30] VITALS: BP 143/79; TEMP 97.8
[2022-06-25] MEDS: Aspirin Chewable 81 MG TAB PO SCH (09:34)
[2022-06-25] MEDS: Gabapentin 300 MG CAP PO SCH (09:35)
[2022-06-25] MEDS: Lisinopril 20 MG TAB PO SCH (09:35)
[2022-06-25] MEDS: Carvedilol 25 MG TAB PO SCH (09:35)
[2022-06-25] MEDS: Amlodipine 5 MG TAB PO SCH (09:35)
[2022-06-25] MEDS: Senokot S 8.6-50 MG TAB PO SCH (09:36)
[2022-06-25] MEDS: TICAGRELOR 90 MG TABLET PO SCH (09:36)
== END 2022-06-25 10:39 | DRG 247 ==
LOC: ERS 15:49 → 2SW 19:47 → OBSVTOIN 06-19 14:22
PROVIDERS: ADMIT Internal Medicine; ATTEND Hospitalist
PROC: 027034Z Dilation of Coronary Artery, One Artery with Drug-eluting Intraluminal Device, Percutaneous Approach (ICD-10-PCS; principal; 2022-06-18)
PROC: 4A023N7 Measurement of Cardiac Sampling and Pressure, Left Heart, Percutaneous Approach (ICD-10-PCS; 2022-06-18)
PROC: B2111ZZ Fluoroscopy of Multiple Coronary Arteries using Low Osmolar Contrast (ICD-10-PCS; 2022-06-18)
PROC: B2151ZZ Fluoroscopy of Left Heart using Low Osmolar Contrast (ICD-10-PCS; 2022-06-18)
PROC: B2181ZZ Fluoroscopy of Left Internal Mammary Bypass Graft using Low Osmolar Contrast (ICD-10-PCS; 2022-06-18)
PROC: B2121ZZ Fluoroscopy of Single Coronary Artery Bypass Graft using Low Osmolar Contrast (ICD-10-PCS; 2022-06-18)
DX: T82.855A Stenosis of coronary artery stent, initial encounter (principal); D62 Acute posthemorrhagic anemia; I50.32 Chronic diastolic (congestive) heart failure; I25.110 Atherosclerotic heart disease of native coronary artery with unstable angina pectoris; Z20.822 Contact with and (suspected) exposure to COVID-19; I11.0 Hypertensive heart disease with heart failure; M54.12 Radiculopathy, cervical region; I08.3 Combined rheumatic disorders of mitral, aortic and tricuspid valves; E78.00 Pure hypercholesterolemia, unspecified; R11.2 Nausea with vomiting, unspecified; G62.9 Polyneuropathy, unspecified; M48.02 Spinal stenosis, cervical region; Y83.8 Other surgical procedures as the cause of abnormal reaction of the patient, or of later complication, without mention of misadventure at the time of the procedure; Z95.5 Presence of coronary angioplasty implant and graft; Z86.73 Personal history of transient ischemic attack (TIA), and cerebral infarction without residual deficits; Z79.82 Long term (current) use of aspirin; Z79.899 Other long term (current) drug therapy; Z95.1 Presence of aortocoronary bypass graft; Z90.49 Acquired absence of other specified parts of digestive tract; Z87.440 Personal history of urinary (tract) infections; Z82.49 Family history of ischemic heart disease and other diseases of the circulatory system; Z87.891 Personal history of nicotine dependence
CPT/HCPCS: 36415; 36416; 70450; 71045; 71275; 74018; 74174; 74176; 80048; 80053; 80061; 81001; 82550; 83880; 84484; 85025; 85347; 87811; 92928; 93005; 93010; 93306; 93459; 93798; 93880; 96374; 96375; 96376; 99152; 99153; C1725; C1769; C1876; C1887; C1894; C9600; G0378; J0153; J1644; J2001; J2250; J2270; J2272; J2405; J3010; Q9967; U0002

== ENCOUNTER 2022-08-21 13:14 | Inpatient (IN) | payer OTHER ==
[~2022-08-21 13:14] MED LIST changes: +Iopamidol 370 76% 100 ML VIAL ONE; -Iopamidol 370 76% 75 ML VIAL FS ONE
[2022-08-21 13:44] LABS: #Eosinphils 0.1 thou/uL (0.0-0.7); #Lymphocytes 1.1 thou/uL (1.20-3.40); #Monocytes 0.3 thou/uL (0.11-0.59); #Neutrophils 3.8 thou/uL (1.40-6.50); %Basophils 0.1 % (0.0-1.0); %Eosinophils 1.4 % (0.0-10.0); %Lymphocytes 20.9 % (21.0-51.0); %Monocytes 5.4 % (0.0-10.0); %Neutrophils 72.1 % (42.0-75.0); Hemoglobin 11.1 g/dL (14.0-18.0); Mean Corpuscular HGB CONC 31.7 g/dL (32.0-36.0); Mean Corpuscular Hemoglobin 23.5 pg (27.0-31.0); Mean Platelet Volume 8.2 fL (7.4-10.4); Platelet Count 388 10x3/uL (130-400); RBC Distribution Width 16.9 % (11.5-14.5); Red Blood Cell (RBC) Count 4.71 mill/uL (4.70-6.10); White Blood Cell (WBC) Count 5.2 10x3/uL (4.8-10.8)
[2022-08-21] MEDS ORDERED: Heparin 10,000 UNITS/ 10 ML VIAL ONE ×2 (13:44→13:46)
[2022-08-21] MEDS ORDERED: Verapamil 5 MG/2 ML VIAL ONE (13:44)
[2022-08-21] MEDS ORDERED: Nitroglycerin 50 MG/250 ML BOT 0 ML ONE (13:44)
[2022-08-21] MEDS ORDERED: fentaNYL 50 mcg/mL 1 mL Vial ONE (13:44)
[2022-08-21] MEDS ORDERED: Adenosine 6 MG/2 ML VIAL ONE (13:44)
[2022-08-21] MEDS ORDERED: Lidocaine 1% (PF) 30 ML VIAL ONE (13:44)
[2022-08-21] MEDS ORDERED: Midazolam HCl 2 mg/2 ml Vial ONE (13:44)
[2022-08-21 13:52] LABS: INR-International Normal Ratio 0.9; PTT 26.7 sec (22.9-36.1); Prothrombin Time 12.6 sec (12.0-14.7)
[2022-08-21 13:57] LABS: Anisocytosis SLIGHT = 6-15 cells (100X) (0-5/hpf); Hypochromia SLIGHT = 6-15 cells (100X) (0-5/hpf); MDiff Complete? YES; Microcytosis SLIGHT = 6-15 cells (100X) (0-5/hpf); Ovalocytes SLIGHT = 2-5 cells (100X) (0-1/hpf); Platelet Morphology Comment Appears Adequate; Polychromasia SLIGHT = 2-3 cells (100X) (0-2/hpf)
[2022-08-21 14:04] LABS: ALT (SGPT) 15 U/L (8-55); AST (SGOT) 13 U/L (5-34); Alkaline Phosphatase 78 U/L (40-110); Anion Gap 10 mmol/L (10-20); BUN (Urea Nitrogen) 11 mg/dL (8.4-25.7); Bilirubin, Total 0.3 mg/dL (0.2-1.2); Calc. Creatinine Clearance 0 mL/min (70-130); Calcium 9.3 mg/dL (7.8-10.44); Carbon Dioxide 23 mmol/L (23-31); Chloride 107 mmol/L (98-107); Estimated GFR 99; Globulin 2.3 g/dL (2.4-3.5); Glucose 135 mg/dL (80-115); Potassium 4.1 mmol/L (3.5-5.1); Protein, Total 6.3 g/dL (5.8-8.1); Sodium 136 mmol/L (136-145)
[2022-08-21] MEDS ORDERED: Milk Of Magnesia 30 ML UDCUP PO PRN (15:14)
[2022-08-21] MEDS: Sodium Chloride 0.9% 1,000 ML IV SCH (16:46)
[2022-08-21] MEDS: Acetaminophen/Codeine 30-300mg Tablet PO PRN ×2 (16:46→22:11)
[2022-08-21 16:47] LABS: Troponin I Less than 0.010 ng/mL (< 0.028)
[2022-08-21 17:06] VITALS: BMI 25.7
[2022-08-21] MEDS ORDERED: Nitroglycerin 50 MG/250 ML BOT 250 ML IVPB SCH (18:00)
[2022-08-21] MEDS ORDERED: Morphine 4 MG/ML VIAL SLOW IVP SCH (18:30)
[2022-08-21 21:30] LABS: Troponin I Less than 0.010 ng/mL (< 0.028)
[2022-08-21] MEDS ORDERED: Carvedilol 25 MG TAB PO SCH (23:00)
[2022-08-21] MEDS ORDERED: Lisinopril 20 MG TAB PO SCH (23:00)
[2022-08-21 23:05] VITALS: BP 148/75
[2022-08-22] MEDS ORDERED: Ondansetron PF 4 MG/2 ML Vial IVP SCH ×2 (02:15→11:00)
[2022-08-22] MEDS: Sodium Chloride 0.9% 1,000 ML IV SCH ×2 (02:49→10:50)
[2022-08-22 03:59] LABS: #Eosinphils 0.1 thou/uL (0.0-0.7); #Lymphocytes 0.9 thou/uL (1.20-3.40); #Monocytes 0.4 thou/uL (0.11-0.59); #Neutrophils 6.1 thou/uL (1.40-6.50); %Basophils 0.3 % (0.0-1.0); %Eosinophils 1.6 % (0.0-10.0); %Lymphocytes 11.8 % (21.0-51.0); %Monocytes 5.7 % (0.0-10.0); %Neutrophils 80.6 % (42.0-75.0); Hemoglobin 8.8 g/dL (14.0-18.0); Mean Corpuscular HGB CONC 32.4 g/dL (32.0-36.0); Mean Corpuscular Hemoglobin 24.4 pg (27.0-31.0); Mean Corpuscular Volume 75.3 fl (78.0-98.0); Mean Platelet Volume 8.2 fL (7.4-10.4); Platelet Count 304 10x3/uL (130-400); RBC Distribution Width 16.5 % (11.5-14.5); Red Blood Cell (RBC) Count 3.61 mill/uL (4.70-6.10); White Blood Cell (WBC) Count 7.6 10x3/uL (4.8-10.8)
[2022-08-22 04:24] LABS: ALT (SGPT) 33 U/L (8-55); AST (SGOT) 33 U/L (5-34); Albumin 3.1 g/dL (3.4-4.8); Alkaline Phosphatase 85 U/L (40-110); Anion Gap 9 mmol/L (10-20); BUN (Urea Nitrogen) 11 mg/dL (8.4-25.7); Bilirubin, Total 0.3 mg/dL (0.2-1.2); Calc. Creatinine Clearance 106 mL/min (70-130); Calcium 8.4 mg/dL (7.8-10.44); Carbon Dioxide 23 mmol/L (23-31); Chloride 109 mmol/L (98-107); Estimated GFR 103; Globulin 1.9 g/dL (2.4-3.5); Glucose 118 mg/dL (80-115); Potassium 3.7 mmol/L (3.5-5.1); Sodium 137 mmol/L (136-145)
[2022-08-22] MEDS: Acetaminophen/Codeine 30-300mg Tablet PO PRN ×2 (05:22→10:49)
[2022-08-22] MEDS ORDERED: Clopidogrel Bisulfate 75 MG TAB PO SCH (09:00)
[2022-08-22] MEDS ORDERED: Lisinopril 20 MG TAB PO SCH (09:00)
[2022-08-22] MEDS ORDERED: Aspirin Chewable 81 MG TAB PO SCH (09:00)
[2022-08-22] MEDS ORDERED: Carvedilol 25 MG TAB PO SCH (09:00)
[2022-08-22 13:23] VITALS: TEMP 97.8
== END 2022-08-22 14:05 | disposition home or self-care (01) | DRG 282 ==
LOC: ERS 13:14 → CCL 14:02 → CCU 15:24
PROVIDERS: ADMIT Internal Medicine Cardiovascular Disease; ATTEND Internal Medicine Cardiovascular Disease
PROC: 4A023N7 Measurement of Cardiac Sampling and Pressure, Left Heart, Percutaneous Approach (ICD-10-PCS; principal; 2022-08-21)
PROC: B2151ZZ Fluoroscopy of Left Heart using Low Osmolar Contrast (ICD-10-PCS; 2022-08-21)
PROC: B2111ZZ Fluoroscopy of Multiple Coronary Arteries using Low Osmolar Contrast (ICD-10-PCS; 2022-08-21)
DX: I21.09 ST elevation (STEMI) myocardial infarction involving other coronary artery of anterior wall (principal); I25.10 Atherosclerotic heart disease of native coronary artery without angina pectoris; I10 Essential (primary) hypertension; E78.5 Hyperlipidemia, unspecified; Z79.82 Long term (current) use of aspirin; Z79.899 Other long term (current) drug therapy
CPT/HCPCS: 36415; 71045; 80053; 84484; 85025; 85347; 85610; 85730; 93005; 93454; 96374; 96375; 99152; 99153; C1769; J0153; J1644; J2001; J2250; J2270; J2405; J3010; J7050

== ENCOUNTER 2022-12-16 15:27 | Inpatient (IN) | payer OTHER ==
[2022-12-16 15:50] LABS: #Monocytes 0.6 thou/uL (0.11-0.59); #Neutrophils 3.9 thou/uL (1.40-6.50); %Basophils 0.5 % (0.0-1.0); %Eosinophils 0.7 % (0.0-10.0); %Lymphocytes 17.2 % (21.0-51.0); %Monocytes 10.7 % (0.0-10.0); %Neutrophils 70.5 % (42.0-75.0); Hematocrit 35.8 % (42.0-52.0); Hemoglobin 10.6 g/dL (14.0-18.0); Mean Corpuscular HGB CONC 29.6 g/dL (32.0-36.0); Mean Corpuscular Hemoglobin 21.6 pg (27.0-31.0); Mean Corpuscular Volume 73.1 fl (78.0-98.0); Mean Platelet Volume 8.9 fL (7.4-10.4); Platelet Count 343 10x3/uL (130-400); RBC Distribution Width 19.3 % (11.5-14.5); White Blood Cell (WBC) Count 5.5 10x3/uL (4.8-10.8)
[2022-12-16 16:13] LABS: ALT (SGPT) 23 U/L (8-55); AST (SGOT) 17 U/L (5-34); Albumin 3.9 g/dL (3.4-4.8); Alkaline Phosphatase 83 U/L (40-110); Anion Gap 12 mmol/L (10-20); BUN (Urea Nitrogen) 10 mg/dL (8.4-25.7); Bilirubin, Total 0.3 mg/dL (0.2-1.2); Calc. Creatinine Clearance 0 mL/min (70-130); Calcium 9.1 mg/dL (7.8-10.44); Carbon Dioxide 23 mmol/L (23-31); Chloride 105 mmol/L (98-107); Estimated GFR 99; Globulin 2.3 g/dL (2.4-3.5); Glucose 133 mg/dL (80-115); Protein, Total 6.2 g/dL (5.8-8.1); Sodium 136 mmol/L (136-145)
[2022-12-16 16:16] LABS: Anisocytosis SLIGHT = 6-15 cells HPF (0-5); CellaVision Operator ID LAB.KB; Hypochromia SLIGHT = 6-15 cells HPF (0-5); Microcytosis SLIGHT = 6-15 cells HPF (0-5); Ovalocytes SLIGHT = 2-5 cells HPF (0-1); Platelet Adequacy Comment Platelets Normal; Troponin I Less than 0.010 ng/mL (< 0.028)
[2022-12-16] MEDS ORDERED: Morphine 4 MG/ML VIAL ONE (16:51)
[2022-12-16] MEDS ORDERED: Mag-Al 1200 mg/1200 mg/30 ML UDCUP ONE (18:19)
[2022-12-16] MEDS ORDERED: Mag-Al 1200 mg/1200 mg/30 ML UDCUP PO PRN (18:22)
[2022-12-16] MEDS ORDERED: Lidocaine 2% Viscous Solution 20 ML, Aluminum & Magnesium Hydroxide 30 ML, Donnatal Eli... SSW SCH (18:30)
[2022-12-16] MEDS ORDERED: Ipratropium/Albuterol 3 ML NEB NEB SCH (19:15)
[2022-12-16 20:51] LABS: Troponin I Less than 0.010 ng/mL (< 0.028)
[2022-12-16 20:52] VITALS: BMI 23.8
[2022-12-16] MEDS: HYDROcodone/Acetaminophen 5/325 mg Tablet PO PRN (21:08)
[2022-12-16] MEDS: TICAGRELOR 90 MG TABLET PO SCH (21:09)
[2022-12-16] MEDS: Zolpidem Tartrate 5 MG TAB PO PRN (21:10)
[2022-12-16 23:40] LABS: Troponin I Less than 0.010 ng/mL (< 0.028)
[2022-12-17] MEDS: HYDROcodone/Acetaminophen 5/325 mg Tablet PO PRN ×4 (02:43→20:04)
[2022-12-17 04:23] LABS: #Monocytes 0.5 thou/uL (0.11-0.59); #Neutrophils 2.7 thou/uL (1.40-6.50); %Basophils 0.5 % (0.0-1.0); %Eosinophils 0.7 % (0.0-10.0); %Lymphocytes 20.6 % (21.0-51.0); %Monocytes 11.3 % (0.0-10.0); %Neutrophils 66.7 % (42.0-75.0); Hematocrit 32.6 % (42.0-52.0); Hemoglobin 9.6 g/dL (14.0-18.0); Mean Corpuscular HGB CONC 29.4 g/dL (32.0-36.0); Mean Corpuscular Hemoglobin 22.1 pg (27.0-31.0); Mean Corpuscular Volume 74.9 fl (78.0-98.0); Mean Platelet Volume 9.2 fL (7.4-10.4); Platelet Count 307 10x3/uL (130-400); RBC Distribution Width 19.1 % (11.5-14.5); Red Blood Cell (RBC) Count 4.35 mill/uL (4.70-6.10); White Blood Cell (WBC) Count 4.1 10x3/uL (4.8-10.8)
[2022-12-17 04:50] LABS: Iron 21 ug/dL (65-175); Iron Binding Capacity, Total 378 mcg/dL (261-462)
[2022-12-17 04:52] LABS: ALT (SGPT) 126 U/L (8-55); AST (SGOT) 157 U/L (5-34); Albumin 3.5 g/dL (3.4-4.8); Alkaline Phosphatase 127 U/L (40-110); Anion Gap 11 mmol/L (10-20); BUN (Urea Nitrogen) 10 mg/dL (8.4-25.7); Bilirubin, Total 0.4 mg/dL (0.2-1.2); Calc. Creatinine Clearance 90 mL/min (70-130); Calcium 8.8 mg/dL (7.8-10.44); Carbon Dioxide 24 mmol/L (23-31); Chloride 105 mmol/L (98-107); Estimated GFR 100; Globulin 2.2 g/dL (2.4-3.5); Glucose 108 mg/dL (80-115); Iron 29 ug/dL (65-175); Iron Binding Capacity, Total 384 mcg/dL (261-462); Protein, Total 5.7 g/dL (5.8-8.1); Sodium 136 mmol/L (136-145)
[2022-12-17] MEDS: Ipratropium/Albuterol 3 ML NEB NEB SCH ×2 (07:13→18:31)
[2022-12-17] MEDS: TICAGRELOR 90 MG TABLET PO SCH ×2 (09:15→20:05)
[2022-12-17] MEDS ORDERED: Iopamidol 370 76% 100 ML VIAL ONE (14:07)
[2022-12-17] MEDS: Ferrous Sulfate 325 MG TAB PO SCH (17:37)
[2022-12-17] MEDS: Carvedilol 25 MG TAB PO SCH (20:05)
[2022-12-17] MEDS: Gabapentin 300 MG CAP PO SCH (20:05)
[2022-12-17] MEDS: Zolpidem Tartrate 5 MG TAB PO PRN (20:08)
[2022-12-18] MEDS: HYDROcodone/Acetaminophen 5/325 mg Tablet PO PRN ×6 (00:22→20:22)
[2022-12-18 04:45] LABS: #Basophils 0.1 thou/uL (0.0-0.2); #Eosinphils 0.1 thou/uL (0.0-0.7); #Monocytes 0.5 thou/uL (0.11-0.59); #Neutrophils 3.5 thou/uL (1.40-6.50); %Basophils 0.9 % (0.0-1.0); %Eosinophils 1.5 % (0.0-10.0); %Lymphocytes 22.3 % (21.0-51.0); %Monocytes 9.1 % (0.0-10.0); %Neutrophils 65.8 % (42.0-75.0); Hematocrit 32.9 % (42.0-52.0); Hemoglobin 9.6 g/dL (14.0-18.0); Mean Corpuscular HGB CONC 29.2 g/dL (32.0-36.0); Mean Corpuscular Volume 75.3 fl (78.0-98.0); Mean Platelet Volume 8.7 fL (7.4-10.4); Platelet Count 263 10x3/uL (130-400); RBC Distribution Width 18.9 % (11.5-14.5); Red Blood Cell (RBC) Count 4.37 mill/uL (4.70-6.10); White Blood Cell (WBC) Count 5.4 10x3/uL (4.8-10.8)
[2022-12-18 05:11] LABS: ALT (SGPT) 70 U/L (8-55); AST (SGOT) 29 U/L (5-34); Albumin 3.4 g/dL (3.4-4.8); Alkaline Phosphatase 104 U/L (40-110); Anion Gap 10 mmol/L (10-20); BUN (Urea Nitrogen) 11 mg/dL (8.4-25.7); Bilirubin, Total 0.3 mg/dL (0.2-1.2); Calc. Creatinine Clearance 77 mL/min (70-130); Calcium 8.8 mg/dL (7.8-10.44); Carbon Dioxide 25 mmol/L (23-31); Chloride 102 mmol/L (98-107); Estimated GFR 96; Globulin 2.2 g/dL (2.4-3.5); Glucose 102 mg/dL (80-115); Potassium 3.9 mmol/L (3.5-5.1); Protein, Total 5.6 g/dL (5.8-8.1); Sodium 133 mmol/L (136-145)
[2022-12-18] MEDS: Ipratropium/Albuterol 3 ML NEB NEB SCH ×2 (06:40→18:42)
[2022-12-18] MEDS: Ferrous Sulfate 325 MG TAB PO SCH ×2 (08:31→15:08)
[2022-12-18] MEDS: Carvedilol 25 MG TAB PO SCH ×2 (08:31→20:21)
[2022-12-18] MEDS: Gabapentin 300 MG CAP PO SCH ×3 (08:31→20:22)
[2022-12-18] MEDS: Lisinopril 20 MG TAB PO SCH (08:31)
[2022-12-18] MEDS: Aspirin 325 mg Enteric Coated Tablet PO SCH (08:31)
[2022-12-18] MEDS: TICAGRELOR 90 MG TABLET PO SCH ×2 (08:36→20:22)
[2022-12-18] MEDS: Zolpidem Tartrate 5 MG TAB PO PRN (20:21)
[2022-12-19] MEDS: HYDROcodone/Acetaminophen 5/325 mg Tablet PO PRN ×4 (01:31→14:03)
[2022-12-19] MEDS: Ipratropium/Albuterol 3 ML NEB NEB SCH (07:31)
[2022-12-19] MEDS: Gabapentin 300 MG CAP PO SCH ×2 (08:49→14:06)
[2022-12-19] MEDS: Carvedilol 25 MG TAB PO SCH (08:49)
[2022-12-19] MEDS: Aspirin 325 mg Enteric Coated Tablet PO SCH (08:50)
[2022-12-19] MEDS: Ferrous Sulfate 325 MG TAB PO SCH ×2 (08:50→16:23)
[2022-12-19] MEDS: Lisinopril 20 MG TAB PO SCH (08:50)
[2022-12-19] MEDS: TICAGRELOR 90 MG TABLET PO SCH (08:54)
[2022-12-19 09:16] VITALS: TEMP 97.7
[2022-12-19 12:26] VITALS: BP 152/72
== END 2022-12-19 17:30 | disposition home or self-care (01) | DRG 68 ==
LOC: ERS 15:27 → 2NO 17:45 → OBSVTOIN 12-17 15:38
PROVIDERS: ADMIT Internal Medicine; ATTEND Internal Medicine
DX: I65.22 Occlusion and stenosis of left carotid artery (principal); I50.32 Chronic diastolic (congestive) heart failure; I66.8 Occlusion and stenosis of other cerebral arteries; I25.10 Atherosclerotic heart disease of native coronary artery without angina pectoris; R55 Syncope and collapse; R29.898 Other symptoms and signs involving the musculoskeletal system; R63.4 Abnormal weight loss; I11.0 Hypertensive heart disease with heart failure; K29.70 Gastritis, unspecified, without bleeding; M54.12 Radiculopathy, cervical region; I77.9 Disorder of arteries and arterioles, unspecified; R26.2 Difficulty in walking, not elsewhere classified; M48.02 Spinal stenosis, cervical region; Z79.82 Long term (current) use of aspirin; Z79.899 Other long term (current) drug therapy; Z95.5 Presence of coronary angioplasty implant and graft; Z87.891 Personal history of nicotine dependence; I65.1 Occlusion and stenosis of basilar artery; I65.03 Occlusion and stenosis of bilateral vertebral arteries; Z68.23 Body mass index [BMI] 23.0-23.9, adult
CPT/HCPCS: 36415; 70496; 70498; 71045; 71275; 74174; 80053; 83540; 83550; 84443; 84484; 85025; 93005; 93880; 94640; 94760; 96374; 96375; G0378; J2270; J7620; Q9967

== ENCOUNTER 2022-12-25 15:45 | Observation (INO) | payer OTHER ==
[2022-12-25] MEDS ORDERED: fentaNYL 50 mcg/mL 1 mL Vial ONE (16:10)
[2022-12-25] MEDS ORDERED: Ondansetron PF 4 MG/2 ML Vial ONE (16:22)
[2022-12-25 16:26] LABS: #Monocytes 0.6 thou/uL (0.11-0.59); #Neutrophils 5.5 thou/uL (1.40-6.50); %Basophils 0.3 % (0.0-1.0); %Eosinophils 0.5 % (0.0-10.0); %Lymphocytes 16.6 % (21.0-51.0); %Monocytes 8.4 % (0.0-10.0); %Neutrophils 73.8 % (42.0-75.0); Hematocrit 36.6 % (42.0-52.0); Mean Corpuscular HGB CONC 30.1 g/dL (32.0-36.0); Mean Corpuscular Hemoglobin 22.4 pg (27.0-31.0); Mean Corpuscular Volume 74.5 fl (78.0-98.0); Mean Platelet Volume 9.3 fL (7.4-10.4); Platelet Count 330 10x3/uL (130-400); RBC Distribution Width 19.8 % (11.5-14.5); Red Blood Cell (RBC) Count 4.91 mill/uL (4.70-6.10); White Blood Cell (WBC) Count 7.5 10x3/uL (4.8-10.8)
[2022-12-25 16:46] LABS: Anisocytosis SLIGHT = 6-15 cells HPF (0-5); Burr Cells SLIGHT = 2-5 cells HPF (0-1); CellaVision Operator ID LAB.MJL; Hypochromia SLIGHT = 6-15 cells HPF (0-5); Microcytosis SLIGHT = 6-15 cells HPF (0-5); Ovalocytes SLIGHT = 2-5 cells HPF (0-1); Platelet Adequacy Comment Platelets Normal; Poikilocytosis SLIGHT = 6-15 cells HPF (0-5); Polychromasia SLIGHT = 2-3 cells HPF (0-2)
[2022-12-25 17:05] LABS: Troponin I Less than 0.010 ng/mL (< 0.028)
[2022-12-25 17:14] LABS: Albumin 3.8 g/dL (3.4-4.8)
[2022-12-25 17:15] LABS: Chloride 106 mmol/L (98-107); Potassium 4.2 mmol/L (3.5-5.1); Sodium 135 mmol/L (136-145)
[2022-12-25 17:16] LABS: Calcium 9.1 mg/dL (7.8-10.44); Glucose 105 mg/dL (80-115)
[2022-12-25 17:17] LABS: Globulin 2.7 g/dL (2.4-3.5); Protein, Total 6.5 g/dL (5.8-8.1)
[2022-12-25 17:18] LABS: Anion Gap 19 mmol/L (10-20); Bilirubin, Total 0.3 mg/dL (0.2-1.2); Carbon Dioxide 14 mmol/L (23-31)
[2022-12-25 17:19] LABS: Alkaline Phosphatase 88 U/L (40-110)
[2022-12-25 17:20] LABS: BUN (Urea Nitrogen) 19 mg/dL (8.4-25.7); Calc. Creatinine Clearance 0 mL/min (70-130); Estimated GFR 67
[2022-12-25 17:21] LABS: AST (SGOT) 20 U/L (5-34)
[2022-12-25 17:22] LABS: ALT (SGPT) 26 U/L (8-55)
[2022-12-25 20:32] LABS: Troponin I Less than 0.010 ng/mL (< 0.028)
[2022-12-25] MEDS ORDERED: Senokot S 8.6-50 MG TAB PO PRN (21:07)
[2022-12-25] MEDS ORDERED: Calcium Carbonate 500 MG ChewTAB PO PRN (21:07)
[2022-12-25] MEDS ORDERED: Acetaminophen 325 MG TAB PO PRN (21:07)
[2022-12-25] MEDS: Ondansetron ODT 4 MG TAB PO PRN (21:30)
[2022-12-25] MEDS: TICAGRELOR 90 MG TABLET PO SCH (21:40)
[2022-12-25] MEDS: HYDROcodone/Acetaminophen 5/325 mg Tablet PO PRN (21:40)
[2022-12-25] MEDS: Carvedilol 25 MG TAB PO SCH (21:41)
[2022-12-25] MEDS: Zolpidem Tartrate 5 MG TAB PO PRN (21:41)
[2022-12-25] MEDS: Gabapentin 300 MG CAP PO SCH (21:41)
[2022-12-25 22:40] LABS: Troponin I Less than 0.010 ng/mL (< 0.028)
[2022-12-25 22:57] VITALS: BMI 23.5
[2022-12-26] MEDS: HYDROcodone/Acetaminophen 5/325 mg Tablet PO PRN ×3 (04:59→21:23)
[2022-12-26 05:56] LABS: #Monocytes 0.7 thou/uL (0.11-0.59); #Neutrophils 5.5 thou/uL (1.40-6.50); %Basophils 0.4 % (0.0-1.0); %Eosinophils 0.4 % (0.0-10.0); %Lymphocytes 15.3 % (21.0-51.0); %Monocytes 8.9 % (0.0-10.0); %Neutrophils 74.6 % (42.0-75.0); Hematocrit 33.5 % (42.0-52.0); Hemoglobin 10.1 g/dL (14.0-18.0); Mean Corpuscular HGB CONC 30.1 g/dL (32.0-36.0); Mean Corpuscular Hemoglobin 22.6 pg (27.0-31.0); Mean Corpuscular Volume 75.1 fl (78.0-98.0); Mean Platelet Volume 9.2 fL (7.4-10.4); Platelet Count 274 10x3/uL (130-400); RBC Distribution Width 20.1 % (11.5-14.5); Red Blood Cell (RBC) Count 4.46 mill/uL (4.70-6.10); White Blood Cell (WBC) Count 7.4 10x3/uL (4.8-10.8)
[2022-12-26 06:15] LABS: Anion Gap 9 mmol/L (10-20); BUN (Urea Nitrogen) 18 mg/dL (8.4-25.7); Calc. Creatinine Clearance 72 mL/min (70-130); Calcium 8.8 mg/dL (7.8-10.44); Carbon Dioxide 19 mmol/L (23-31); Chloride 107 mmol/L (98-107); Estimated GFR 94; Glucose 132 mg/dL (80-115); Potassium 3.9 mmol/L (3.5-5.1); Sodium 131 mmol/L (136-145)
[2022-12-26] MEDS: Famotidine 20 MG TAB PO SCH ×2 (08:49→21:23)
[2022-12-26] MEDS: Carvedilol 25 MG TAB PO SCH ×2 (08:49→21:23)
[2022-12-26] MEDS: Gabapentin 300 MG CAP PO SCH ×3 (08:49→21:22)
[2022-12-26] MEDS: Lisinopril 20 MG TAB PO SCH (08:50)
[2022-12-26] MEDS: TICAGRELOR 90 MG TABLET PO SCH ×2 (08:50→21:23)
[2022-12-26] MEDS ORDERED: Aspirin 325 mg Enteric Coated Tablet PO SCH (09:00)
[2022-12-26] MEDS: Ondansetron ODT 4 MG TAB PO PRN (16:26)
[2022-12-26] MEDS ORDERED: Atorvastatin Calcium 40 MG TAB PO SCH (21:00)
[2022-12-26] MEDS: Zolpidem Tartrate 5 MG TAB PO PRN (21:23)
[2022-12-27] MEDS: HYDROcodone/Acetaminophen 5/325 mg Tablet PO PRN ×2 (05:24→13:28)
[2022-12-27] MEDS: Gabapentin 300 MG CAP PO SCH ×2 (09:03→16:33)
[2022-12-27] MEDS: Carvedilol 25 MG TAB PO SCH (09:03)
[2022-12-27] MEDS: Lisinopril 20 MG TAB PO SCH (09:03)
[2022-12-27] MEDS: TICAGRELOR 90 MG TABLET PO SCH (09:03)
[2022-12-27] MEDS: Famotidine 20 MG TAB PO SCH (09:03)
[2022-12-27 16:18] VITALS: BP 139/79; TEMP 97
== END 2022-12-27 16:30 | disposition home or self-care (01) ==
LOC: ERS 15:45 → 2SE 18:40
PROVIDERS: ADMIT Family Medicine; ATTEND Hospitalist
DX: I25.10 Atherosclerotic heart disease of native coronary artery without angina pectoris (principal); E78.5 Hyperlipidemia, unspecified; I10 Essential (primary) hypertension; M48.02 Spinal stenosis, cervical region; E87.1 Hypo-osmolality and hyponatremia; Z86.73 Personal history of transient ischemic attack (TIA), and cerebral infarction without residual deficits; Z79.899 Other long term (current) drug therapy; Z95.1 Presence of aortocoronary bypass graft; Z90.49 Acquired absence of other specified parts of digestive tract
CPT/HCPCS: 71045; 80048; 80053; 83880; 84484 ×2; 85025 ×2; 93005; 94760; 96374; 96375; 99285; G0378 ×4; J3010; 36415; J2405; Q0162

== ENCOUNTER 2024-04-07 10:21 | Emergency (ER) | payer OTHER ==
[2024-04-07 14:51] LABS: Bilirubin Negative (Negative); Blood, Urine 1+ (Negative); CAUTI Indications for Culture Alt mental st,lethar; Clarity Turbid (Clear); Glucose, Urine (Dipstick) Normal (Negative); Ketone, Urine Negative (Negative); Leukocyte 500 Leu/uL (Negative); Nitrite 1+ (Negative); Protein, Urine (Dipstick) 20 mg/dL (Neg-Trace); RBC/HPF 0-3 HPF (0-3); Specific Gravity, Urine 1.005 (1.002-1.036); Squamous Epithelial None Seen HPF (0-3); WBC/HPF Greater than 50 HPF (0-3)
[2024-04-07 14:54] LABS: Bacteria/HPF 1+ HPF (None Seen); Urine Culture Reflex Yes Yes
[2024-04-07] MEDS ORDERED: Cephalexin 250 MG CAP ONE (16:18)
[2024-04-07] MEDS ORDERED: oxyCODONE 5 MG TAB PO SCH (16:30)
== END 2024-04-07 21:27 ==
LOC: ERS 10:21
DX: N39.0 Urinary tract infection, site not specified (principal); T83.091A Other mechanical complication of indwelling urethral catheter, initial encounter; I11.0 Hypertensive heart disease with heart failure; I50.32 Chronic diastolic (congestive) heart failure; E78.5 Hyperlipidemia, unspecified; Z86.73 Personal history of transient ischemic attack (TIA), and cerebral infarction without residual deficits
CPT/HCPCS: 51702; 81001; 87077; 87086; 87186; 99283